=== PATIENT | male | born 1960 | race American Indian/Alaskan Native ===

== ENCOUNTER 2018-06-11 02:39 | Inpatient (IN) | payer MEDICARE ==
[2018-06-11] MEDS ORDERED: ZOFRAN IM ONE (03:52)
[2018-06-11 04:17] LABS: Hematocrit 45.3 % (35.5-45.6); Hemoglobin 15.1 gm/dl (11.8-15.2); Mean Corpuscular HGB Conc 33 % (32-34); Mean Corpuscular Volume 85 fl (84-94); Platelet Count 240 K/mm3 (140-440); Red Blood Count 5.34 M/mm3 (3.65-5.03); Red Cell Distribution Width 13.6 % (13.2-15.2)
[2018-06-11 04:40] LABS: BUN/Creatinine Ratio 19; Blood Urea Nitrogen 19 mg/dL (9-20); Calcium 9.2 mg/dL (8.4-10.2); Hemolysis Index 11
[2018-06-11] MEDS ORDERED: TYLENOL ONE (06:08)
[2018-06-11] MEDS ORDERED: TYLENOL PO ONE (06:10)
[2018-06-11 08:23] LABS: Basophils % (Manual) 0 % (0.0-1.8); Eosinophils % (Manual) 0 % (0.0-4.3); Total Cells Counted 100
[2018-06-11 08:24] LABS: Anisocytosis Few; Platelet Estimate Consistent w Auto
--- NOTE | 2018-06-11 08:59 | Emergency Department Report ---
ED Abdominal Pain HPI - General Chief Complaint: Hyperglycemia Stated Complaint: HIGH BLOOD SUGAR Time Seen by Provider: 06/11/18 08:46 Source: patient Mode of arrival: Ambulatory Limitations: No Limitations - History of Present Illness Initial Comments: Patient is a 58-year-old male presents emergency room with complaints of right flank pain and hyperglycemia. Patient states his blood sugar has been high for weeks. Patient states that his flank pain started 2 days ago and is worsening. Patient states the pain is a 10 out of 10. Patient states the pain is not radiating. Patient states that his pain is better with rest and worse with palpation and movement. Patient denies chest pain shortness of breath. Patient denies dysuria. Patient denies headache and blurred vision. Patient denies fever and chills. MD Complaint: abdominal pain, flank pain -: Sudden Location: R flank Radiation: none Migration to: no migration Severity scale (0 -10): 10 Quality: stabbing Consistency: constant Improves With: rest Worsens With: movement Associated Symptoms: denies: nausea, vomiting, diarrhea, fever, chills, constipation, dysuria, hematemesis, hematochezia, melena, hematuria, anorexia, syncope - Related Data Home Medications Medication Instructions Recorded Confirmed Last Taken ALBUTEROL Inhaler (OR & NICU) 1 puff IH BID 06/11/18 06/11/18 Unknown [Proair] Carvedilol [Coreg] 3.125 mg PO BID 06/11/18 06/11/18 Unknown Diclofenac [Estela Mahoney] 75 mg PO DAILY 06/11/18 06/11/18 Unknown Diphenhydramine HCl [Complete 25 mg PO DAILY 06/11/18 06/11/18 Unknown Allergy] Famotidine [Pepcid] 40 mg PO QHS 06/11/18 06/11/18 Unknown Gabapentin [Neurontin] 800 mg PO BID 06/11/18 06/11/18 Unknown Lansoprazole [Heartburn Treatment 15 mg PO DAILY 06/11/18 06/11/18 Unknown 24 Hour] Loratadine [Claritin] 10 mg PO DAILY 06/11/18 06/11/18 Unknown Olmesartan Medoxomil 20 mg PO DAILY 06/11/18 06/11/18 Unknown Tamsulosin [Flomax] 0.4 mg PO DAILY 06/11/18 06/11/18 Unknown Travoprost [Travatan Z] 1 drop OU QHS 06/11/18 06/11/18 Unknown cephALEXin [Keflex] 500 mg PO BID 06/11/18 06/11/18 Unknown hydrOXYzine HCl [Hydroxyzine HCl] 25 mg PO DAILY 06/11/18 06/11/18 Unknown tiZANidine [Zanaflex] 4 mg PO DAILY 06/11/18 06/11/18 Unknown traMADol [Ultram] 50 mg PO BID 06/11/18 06/11/18 Unknown traZODone [Desyrel] 100 mg PO QHS 06/11/18 06/11/18 Unknown Allergies Allergy/AdvReac Type Severity Reaction Status Date / Time No Known Allergies Allergy Verified 06/11/18 06:07 ED Review of Systems ROS: Stated complaint: HIGH BLOOD SUGAR Other details as noted in HPI Constitutional: denies: chills, fever Eyes: denies: eye pain, eye discharge, vision change ENT: denies: ear pain, throat pain Respiratory: denies: cough, shortness of breath, wheezing Cardiovascular: denies: chest pain, palpitations Endocrine: no symptoms reported Gastrointestinal: denies: abdominal pain, nausea, diarrhea Genitourinary: denies: urgency, dysuria Musculoskeletal: denies: back pain, joint swelling, arthralgia Skin: denies: rash, lesions Neurological: denies: headache, weakness, paresthesias Psychiatric: denies: anxiety, depression Hematological/Lymphatic: denies: easy bleeding, easy bruising ED Past Medical Hx - Past Medical History Previous Medical History?: Yes Hx Diabetes: Yes Hx GERD: Yes Additional medical history: Hep B&C. - Surgical History Past Surgical History?: Yes Hx Cholecystectomy: Yes Additional Surgical History: Hernia Repair, Cyst left thigh - Family History Family history: no significant - Social History Smoking Status: Current Every Day Smoker Substance Use Type: None - Medications Home Medications: Home Medications Medication Instructions Recorded Confirmed Last Taken Type ALBUTEROL Inhaler (OR & NICU) 1 puff IH BID 06/11/18 06/11/18 Unknown History [Proair] Carvedilol [Coreg] 3.125 mg PO BID 06/11/18 06/11/[address] [Voltaren Dr] 75 mg PO DAILY 06/11/18 06/11/18 Unknown History Diphenhydramine HCl [Complete 25 mg PO DAILY 06/11/18 06/11/18 Unknown History Allergy] Famotidine [Pepcid] 40 mg PO QHS 06/11/18 06/11/18 Unknown History Gabapentin [Neurontin] 800 mg PO BID 06/11/18 06/11/18 Unknown History Lansoprazole [Heartburn Treatment 15 mg PO DAILY 06/11/18 06/11/18 Unknown History 24 Hour] Loratadine [Claritin] 10 mg PO DAILY 06/11/18 06/11/18 Unknown History Olmesartan Medoxomil 20 mg PO DAILY 06/11/18 06/11/18 Unknown History Tamsulosin [Flomax] 0.4 mg PO DAILY 06/11/18 06/11/18 Unknown History Travoprost [Travatan Z] 1 drop OU QHS 06/11/18 06/11/18 Unknown History cephALEXin [Keflex] 500 mg PO BID 06/11/18 06/11/18 Unknown History hydrOXYzine HCl [Hydroxyzine HCl] 25 mg PO DAILY 06/11/18 06/11/18 Unknown History tiZANidine [Zanaflex] 4 mg PO DAILY 06/11/18 06/11/18 Unknown History traMADol [Ultram] 50 mg PO BID 06/11/18 06/11/18 Unknown History traZODone [Desyrel] 100 mg PO QHS 06/11/18 06/11/18 Unknown History ED Physical Exam - General Limitations: No Limitations General appearance: alert, in no apparent distress - Head Head exam: Present: atraumatic, normocephalic - Eye Eye exam: Present: normal appearance - ENT ENT exam: Present: mucous membranes dry - Neck Neck exam: Present: normal inspection - Respiratory Respiratory exam: Present: normal lung sounds bilaterally. Absent: respiratory distress - Cardiovascular Cardiovascular Exam: Present: regular rate, normal rhythm. Absent: systolic murmur, diastolic murmur, rubs, gallop - GI/Abdominal GI/Abdominal exam: Present: soft, tenderness (right flank tenderness), normal anaid wel sounds - Rectal Rectal exam: Present: deferred - Extremities Exam Extremities exam: Present: normal inspection - Back Exam Back exam: Present: normal inspection - Neurological Exam Neurological exam: Present: alert, oriented X3 - Psychiatric Psychiatric exam: Present: normal affect, normal mood - Skin Skin exam: Present: warm, dry, intact, normal color. Absent: rash ED Course Vital Signs 06/11/18 06/11/18 03:42 14:25 Temperature 98.1 F Pulse Rate 131 H Respiratory 18 20 Rate Blood Pressure 120/84 O2 Sat by Pulse 98 Oximetry - Reevaluation(s) Reevaluation #1: Discussed all results with patient. 06/11/18 11:37 Nurse was unable to achieve peripheral IV. I was unable to acquire EJ IVs as well. 06/11/18 11:56 PICC line team consulted. PICC line team to come see patient started IV 06/11/18 11:59 Virgen all results with patient. Discussed plan of care and admission patient. Patient agrees with plan of care and admission. 06/11/18 12:45 - Consultations Consultation #1: Hospitalist consulted for admission. Hospitalist to admit and assume care of patient. Patient admitted to the intermediate ICU and bridge orders placed 06/11/18 12:07 ED Medical Decision Making - Lab Data Result diagrams: 06/11/18 03:54 06/11/18 14:03 - Radiology Data Radiology results: report reviewed CT ABDOMEN PELVIS WITHOUT CONTRAST: HISTORY: abdominal pain. COMPARISON: none. TECHNIQUE: Helical CT in 1.25mm intervals without IV contrast. Sagittal and coronal reconstructions. FINDINGS: Lung bases: The lungs are adequately aerated. Normal heart size. Small hiatal hernia is identified. Liver: Normal. Biliary system: Cholecystectomy. Pancreas: Normal. Spleen: Normal. Kidneys/ureters/bladder: Normal. Few scattered small renal cysts are noted. Adrenal glands: Normal. Aorta: Normal. Intestines: Normal. Appendix: Normal. Ascites: None. Adenopathy: None. Musculoskeletal: Normal. IMPRESSION: No acute process is identified in the abdomen or pelvis - Medical Decision Making She has 58-year-old male that presents emergency room with abdominal pain and hyperglycemia. Abdominal CT is negative for acute findings. Patient's labs remarkable for elevated white blood cell, low bicarbonate, (9 gap, and hyponatremia. Patient's findings consistent with hyperosmolar hyperglycemia syndrome. Patient was admitted to the hospitalist service for further evaluation treatment. We had difficulty placing a peripheral IV, PICC line team consulted. - Differential Diagnosis DKA. Hyperglycemia. HHS. Abdominal pain. UTI. Critical Care Time: Yes Critical care attestation.: If time is entered above; I have spent that time in minutes in the direct care of this critically ill patient, excluding procedure time. Critical Care Time: 35 minutes ED Disposition Clinical Impression: Hyperglycemia, Hyperglycemic hyperosmolar nonketotic coma, Hyponatremia, Right flank pain Abdominal pain Qualifiers: Abdominal location: unspecified location Qualified Code(s): R10.9 - Unspecified abdominal pain Disposition: 09 OP ADMIT IP TO THIS HOSP Is pt being admited?: Yes Does the pt Need Aspirin: No Condition: Critical Time of Disposition: 12:02
--- NOTE | 2018-06-11 10:53 | Cat Scan Report ---
CT ABDOMEN PELVIS WITHOUT CONTRAST: HISTORY: abdominal pain. COMPARISON: none. TECHNIQUE: Helical CT in 1.25mm intervals without IV contrast. Sagittal and coronal reconstructions. FINDINGS: Lung bases: The lungs are adequately aerated. Normal heart size. Small hiatal hernia is identified. Liver: Normal. Biliary system: Cholecystectomy. Pancreas: Normal. Spleen: Normal. Kidneys/ureters/bladder: Normal. Few scattered small renal cysts are noted. Adrenal glands: Normal. Aorta: Normal. Intestines: Normal. Appendix: Normal. Ascites: None. Adenopathy: None. Musculoskeletal: Normal. IMPRESSION: No acute process is identified in the abdomen or pelvis.
[2018-06-11] MEDS ORDERED: ROCEPHIN/NS 1 GM/50 ML 1 GM/50 ML BAG IV ONE ×2 (11:32→13:35)
[2018-06-11] MEDS ORDERED: D50W (25GM) Syringe IV PRN (12:04)
[2018-06-11] MEDS ORDERED: NACL 0.9% 1000 ML 1,000 ML IV ONE (12:04)
[2018-06-11 12:19] LABS: Bilirubin,Urine NEG (Negative); Blood,Urine NEG (Negative); Color,Urine Yellow (Yellow); Mucus,Urine FEW /HPF; Protein,Urine <15 mg/dL mg/dL (Negative)
[2018-06-11] MEDS ORDERED: HumuLIN R 100 UNITS in NACL 0.9% 99 ML IV SCH (13:00)
[2018-06-11] MEDS ORDERED: NACL 0.9% 1000 ML 1,000 ML ONE ×2 (13:36→19:29)
[2018-06-11] MEDS ORDERED: TYLENOL PO PRN (13:41)
[2018-06-11] MEDS ORDERED: REGLAN IV PRN (13:41)
[2018-06-11] MEDS ORDERED: SODIUM CHLORIDE FLUSH SYRINGE 10 ML IV PRN (13:41)
[2018-06-11] MEDS ORDERED: DILAUDID IV PRN (13:41)
[2018-06-11] MEDS ORDERED: PERCOCET 5/325 PO PRN (13:41)
[2018-06-11] MEDS ORDERED: ZOFRAN IV PRN (13:41)
[2018-06-11] MEDS ORDERED: NON-FORMULARY (Gabapentin [Neurontin] 800 MG) PO SCH (13:45)
[2018-06-11] MEDS ORDERED: DILAUDID IV ONE (13:45)
[2018-06-11] MEDS ORDERED: PROAIR IH SCH (13:45)
[2018-06-11] MEDS ORDERED: OLMESARTAN MEDOXOMIL 20 MG PO SCH (14:00)
[2018-06-11] MEDS ORDERED: ROCEPHIN/NS 2 GM/100 ML 2 GM/100 ML BAG IV SCH (14:00)
[2018-06-11] MEDS ORDERED: PROVENTIL IH PRN (14:30)
[2018-06-11 14:35] LABS: Calcium 8.6 mg/dL (8.4-10.2)
[2018-06-11 14:36] LABS: Calcium 8.6 mg/dL (8.4-10.2)
[2018-06-11] MEDS ORDERED: HumaLOG SUB-Q ONE (14:49)
[2018-06-11] MEDS ORDERED: NEURONTIN ONE ×2 (14:51→22:54)
[2018-06-11] MEDS ORDERED: COREG ONE ×2 (14:51→22:54)
[2018-06-11] MEDS ORDERED: BENADRYL PO ONE (14:51)
[2018-06-11] MEDS ORDERED: ZANAFLEX ONE (14:52)
[2018-06-11] MEDS ORDERED: PEPCID IV ONE ×2 (14:52→22:54)
[2018-06-11] MEDS ORDERED: ULTRAM ONE ×2 (14:53→22:55)
[2018-06-11] MEDS: BENADRYL PO SCH (15:03)
[2018-06-11] MEDS: COREG PO SCH ×2 (15:03→22:58)
[2018-06-11] MEDS: HumaLOG SUB-Q SCH ×3 (15:04→22:58)
[2018-06-11] MEDS: PEPCID IV SCH ×2 (15:26→22:59)
[2018-06-11] MEDS: ULTRAM PO SCH ×2 (15:34→22:59)
[2018-06-11] MEDS: NEURONTIN PO SCH ×2 (15:35→22:59)
[2018-06-11] MEDS: ZANAFLEX PO SCH (15:35)
[2018-06-11] MEDS: FLOMAX PO SCH (15:57)
[2018-06-11 16:24] LABS: Calcium 8.5 mg/dL (8.4-10.2)
[2018-06-11] MEDS: LANTUS SUB-Q SCH ×2 (16:38→23:55)
[2018-06-11] MEDS: NACL 0.9% 1000 ML 1,000 ML IV SCH (19:41)
[2018-06-11] MEDS ORDERED: HumuLIN R ONE (20:32)
[2018-06-11 21:59] LABS: BUN/Creatinine Ratio 17; Blood Urea Nitrogen 24 mg/dL (9-20); Calcium 7.9 mg/dL (8.4-10.2); Hemolysis Index 6
[2018-06-11] MEDS ORDERED: NON-FORMULARY (Travoprost [Travatan Z 0.004%] 1 DROP) OU SCH (22:00)
[2018-06-11] MEDS ORDERED: DESYREL PO ONE (22:54)
[2018-06-11] MEDS: DESYREL PO SCH (22:58)
[2018-06-11] MEDS: SODIUM CHLORIDE FLUSH SYRINGE 10 ML IV SCH (22:59)
[2018-06-11] MEDS: LATANOPROST 0.005% OU SCH (23:00)
[2018-06-11] MEDS: ATARAX PO SCH (23:55)
[2018-06-12] MEDS: HumaLOG SUB-Q SCH ×6 (01:56→21:46)
[2018-06-12] MEDS ORDERED: HumaLOG SUB-Q ONE (02:02)
[2018-06-12 06:38] LABS: BUN/Creatinine Ratio 23; Blood Urea Nitrogen 23 mg/dL (9-20); Hemolysis Index 67
--- NOTE | 2018-06-12 07:07 | History and Physical Report ---
History of Present Illness Date of examination: 06/11/18 Date of admission: 06/11/18 12:02 Chief complaint: Rt Flank pain --2 days History of present illness: Patient is a 58-year-old male presents emergency room with complaints of right flank pain and hyperglycemia. Patient states his blood sugar has been high for weeks. Patient states that his flank pain started 2 days ago and is worsening. Patient states the pain is a 10 out of 10. Patient states the pain is not radiating. Patient states that his pain is better with rest and worse with palpation and movement. Patient denies chest pain shortness of breath. Patient denies dysuria. Patient denies headache and blurred vision. Patient denies fever and chills. Past Medical History Previous Medical History?: Yes Hx Diabetes: Yes Hx GERD: Yes Additional medical history: Hep B&C. Surgical History Past Surgical History?: Yes Hx Cholecystectomy: Yes Additional Surgical History: Hernia Repair, Cyst left thigh Family History Family history: no significant Social History Smoking Status: Current Every Day Smoker Substance Use Type: None Medications Home Medications: Home Medications Medication Instructions Recorded Confirmed Last Taken Type ALBUTEROL Inhaler (OR & NICU) 1 puff IH BID 06/11/18 06/11/18 Unknown History [Proair] Carvedilol [Coreg] 3.125 mg PO BID 06/11/18 06/11/18 Unknown History Diclofenac [Estela Mahoney] 75 mg PO DAILY 06/11/18 06/11/18 Unknown History Diphenhydramine HCl [Complete 25 mg PO DAILY 06/11/18 06/11/18 Unknown History Allergy] Famotidine [Pepcid] 40 mg PO QHS 06/11/18 06/11/18 Unknown History Gabapentin [Neurontin] 800 mg PO BID 06/11/18 06/11/18 Unknown History Lansoprazole [Heartburn Treatment 15 mg PO DAILY 06/11/18 06/11/18 Unknown History 24 Hour] Loratadine [Claritin] 10 mg PO DAILY 06/11/18 06/11/18 Unknown History Olmesartan Medoxomil 20 mg PO DAILY 06/11/18 06/11/18 Unknown History Tamsulosin [Flomax] 0.4 mg PO DAILY 06/11/18 06/11/18 Unknown History Travoprost [Travatan Z] 1 drop OU QHS 06/11/18 06/11/18 Unknown History cephALEXin [Keflex] 500 mg PO BID 06/11/18 06/11/18 Unknown History hydrOXYzine HCl [Hydroxyzine HCl] 25 mg PO DAILY 06/11/18 06/11/18 Unknown History tiZANidine [Zanaflex] 4 mg PO DAILY 06/11/18 06/11/18 Unknown History traMADol [Ultram] 50 mg PO BID 06/11/18 06/11/18 Unknown History traZODone [Desyrel] 100 mg PO QHS 06/11/18 06/11/18 Unknown History Review of Systems ROS: Stated complaint: HIGH BLOOD SUGAR Other details as noted in HPI Constitutional: denies: chills, fever Eyes: denies: eye pain, eye discharge, vision change ENT: denies: ear pain, throat pain Respiratory: denies: cough, shortness of breath, wheezing Cardiovascular: denies: chest pain, palpitations Endocrine: no symptoms reported Gastrointestinal: denies: abdominal pain, nausea, diarrhea Genitourinary: denies: urgency, dysuria Musculoskeletal: denies: back pain, joint swelling, arthralgia Skin: denies: rash, lesions Neurological: denies: headache, weakness, paresthesias Psychiatric: denies: anxiety, depression Hematological/Lymphatic: denies: easy bleeding, easy bruising Medications and Allergies Allergies Allergy/AdvReac Type Severity Reaction Status Date / Time No Known Allergies Allergy Verified 06/11/18 06:07 Home Medications Medication Instructions Recorded Confirmed Last Taken Type ALBUTEROL Inhaler (OR & NICU) 1 puff IH BID 06/11/18 06/11/18 Unknown History [Proair] Carvedilol [Coreg] 3.125 mg PO BID 06/11/18 06/11/18 Unknown History Lauren Mahoney [Estela Mahoney] 75 mg PO DAILY 06/11/18 06/11/18 Unknown History Diphenhydramine HCl [Complete 25 mg PO DAILY 06/11/18 06/11/18 Unknown History Allergy] Famotidine [Pepcid] 40 mg PO QHS 06/11/18 06/11/18 Unknown History Gabapentin [Neurontin] 800 mg PO BID 06/11/18 06/11/18 Unknown History Lansoprazole [Heartburn Treatment 15 mg PO DAILY 06/11/18 06/11/18 Unknown History 24 Hour] Loratadine [Claritin] 10 mg PO DAILY 06/11/18 06/11/18 Unknown History Olmesartan Medoxomil 20 mg PO DAILY 06/11/18 06/11/18 Unknown History Tamsulosin [Flomax] 0.4 mg PO DAILY 06/11/18 06/11/18 Unknown History Travoprost [Travatan Z] 1 drop OU QHS 06/11/18 06/11/18 Unknown History cephALEXin [Keflex] 500 mg PO BID 06/11/18 06/11/18 Unknown History hydrOXYzine HCl [Hydroxyzine HCl] 25 mg PO DAILY 06/11/18 06/11/18 Unknown History tiZANidine [Zanaflex] 4 mg PO DAILY 06/11/18 06/11/18 Unknown History traMADol [Ultram] 50 mg PO BID 06/11/18 06/11/18 Unknown History traZODone [Desyrel] 100 mg PO QHS 06/11/18 06/11/18 Unknown History Active Meds: Active Medications Acetaminophen (Tylenol) 650 mg PO Q4H PRN PRN Reason: Pain MILD(1-3)/Fever >100.5/JOHNSON Albuterol (Proventil) 2.5 mg IH Q4HRT PRN PRN Reason: Shortness Of Breath Carvedilol (Coreg) 3.125 mg PO BID [facility] Last Admin: 06/11/18 22:58 Dose: 3.125 mg Documented by: Dextrose (D50w (25gm) Syringe) 0 ml IV PRN PRN PRN Reason: Hypoglycemia Diphenhydramine HCl (Benadryl) 25 mg PO DAILY [facility] Last Admin: 06/11/18 15:03 Dose: 25 mg Documented by: Famotidine (Pepcid) 20 mg IV BID [facility] Last Admin: 06/11/18 22:59 Dose: 20 mg Documented by: Gabapentin (Neurontin) 800 mg PO BID [facility] Last Admin: 06/11/18 22:59 Dose: 800 mg Documented by: Hydromorphone HCl (Dilaudid) 0.5 mg IV Q3H PRN PRN Reason: Pain , Severe (7-10) Hydroxyzine HCl (Atarax) 25 mg PO QHS [facility] Last Admin: 06/11/18 23:55 Dose: 25 mg Documented by: Ceftriaxone Sodium (Rocephin/Ns 2 Gm/100 Ml) 2 gm in 100 mls @ 200 mls/hr IV Q24HR [facility]; Protocol Last Admin: 06/11/18 20:23 Dose: 200 mls/hr Documented by: Sodium Chloride (Nacl 0.9% 1000 Ml) 1,000 mls @ 100 mls/hr IV DIRECT [facility] Last Admin: 06/11/18 19:41 Dose: 100 mls/hr Documented by: Insulin Glargine (Lantus) 30 units SUB-Q BID [facility] Last Admin: 06/11/18 23:55 Dose: 30 units Documented by: Insulin Human Lispro (Humalog) 0 unit SUB-Q Q4HR [facility]; Protocol Last Admin: 06/12/18 06:18 Dose: Not Given Documented by: Latanoprost (Latanoprost 0.005%) 1 drops OU QPM [facility] Last Admin: 06/11/18 23:00 Dose: 1 drops Documented by: Losartan Potassium (Cozaar) 50 mg PO QDAY [facility] Metoclopramide HCl (Reglan) 10 mg IV Q6H PRN PRN Reason: Nausea And Vomiting Ondansetron HCl (Zofran) 4 mg IV Q3H PRN PRN Reason: Nausea And Vomiting Oxycodone/Acetaminophen (Percocet 5/325) 1 tab PO Q6H PRN PRN Reason: Pain, Moderate (4-6) Sodium Chloride (Sodium Chloride Flush Syringe 10 Ml) 10 ml IV BID [facility] Last Admin: 06/11/18 22:59 Dose: 10 ml Documented by: Sodium Chloride (Sodium Chloride Flush Syringe 10 Ml) 10 ml IV PRN PRN PRN Reason: LINE FLUSH Tamsulosin HCl (Flomax) 0.4 mg PO DAILY [facility] Last Admin: 06/11/18 15:57 Dose: 0.4 mg Documented by: Tizanidine HCl (Zanaflex) 4 mg PO DAILY [facility] Last Admin: 06/11/18 15:35 Dose: 4 mg Documented by: Tramadol HCl (Ultram) 50 mg PO BID [facility] Last Admin: 06/11/18 22:59 Dose: 50 mg Documented by: Trazodone HCl (Desyrel) 100 mg PO QHS [facility] Last Admin: 06/11/18 22:58 Dose: 100 mg Documented by: Exam - Constitutional Vitals: Temp Pulse Resp BP Pulse Ox 98.7 F 68 11 L 95/59 100 06/11/18 16:22 06/12/18 04:00 06/12/18 04:00 06/12/18 04:00 06/11/18 14:52 General appearance: Present: no acute distress, well-nourished - EENT Eyes: Present: PERRL ENT: hearing intact, clear oral mucosa - Neck Neck: Present: supple, normal ROM - Respiratory Respiratory effort: normal Respiratory: bilateral: CTA - Cardiovascular Heart rate: 88 Rhythm: regular Heart Sounds: Present: S1 & S2. Absent: rub, click - Extremities Extremities: no ischemia, pulses intact, pulses symmetrical, No edema Peripheral Pulses: within normal limits - Abdominal General gastrointestinal: Present: soft, non-tender, non-distended, normal bowel sounds Male genitourinary: Present: normal - Rectal Rectal Exam: deferred - Integumentary Integumentary: Present: clear, warm, dry - Musculoskeletal Musculoskeletal: gait normal, strength equal bilaterally - Psychiatric Psychiatric: appropriate mood/affect, intact judgment & insight - Neurologic Neurologic: CNII-XII intact, moves all extremities - Allied Health Allied health notes reviewed: nursing, case management Results - Labs CBC & Chem 7: 06/11/18 03:54 06/12/18 05:18 Labs: Laboratory Last Values WBC 20.4 K/mm3 (4.5-11.0) H 06/11/18 03:54 RBC 5.34 M/mm3 (3.65-5.03) H 06/11/18 03:54 Hgb 15.1 gm/dl (11.8-15.2) 06/11/18 03:54 Hct 45.3 % (35.5-45.6) 06/11/18 03:54 MCV 85 fl (84-94) 06/11/18 03:54 MCH 28 pg (28-32) 06/11/18 03:54 MCHC 33 % (32-34) 06/11/18 03:54 RDW 13.6 % (13.2-15.2) 06/11/18 03:54 Plt Count 240 K/mm3 (140-440) 06/11/18 03:54 Add Manual Diff Complete 06/11/18 03:54 Total Counted 100 06/11/18 03:54 Seg Neuts % (Manual) 73.0 % (40.0-70.0) H 06/11/18 03:54 Band Neutrophils % 0 % 06/11/18 03:54 Lymphocytes % (Manual) 20.0 % (13.4-35.0) 06/11/18 03:54 Reactive Lymphs % (Man) 0 % 06/11/18 03:54 Monocytes % (Manual) 7.0 % (0.0-7.3) 06/11/18 03:54 Eosinophils % (Manual) 0 % (0.0-4.3) 06/11/18 03:54 Basophils % (Manual) 0 % (0.0-1.8) 06/11/18 03:54 Metamyelocytes % 0 % 06/11/18 03:54 Myelocytes % 0 % 06/11/18 03:54 Promyelocytes % 0 % 06/11/18 03:54 Blast Cells % 0 % 06/11/18 03:54 Nucleated RBC % Not Reportable 06/11/18 03:54 Seg Neutrophils # Man 14.9 K/mm3 (1.8-7.7) H 06/11/18 03:54 Band Neutrophils # 0.0 K/mm3 06/11/18 03:54 Lymphocytes # (Manual) 4.1 K/mm3 (1.2-5.4) 06/11/18 03:54 Abs React Lymphs (Man) 0.0 K/mm3 06/11/18 03:54 Monocytes # (Manual) 1.4 K/mm3 (0.0-0.8) H 06/11/18 03:54 Eosinophils # (Manual) 0.0 K/mm3 (0.0-0.4) 06/11/18 03:54 Basophils # (Manual) 0.0 K/mm3 (0.0-0.1) 06/11/18 03:54 Metamyelocytes # 0.0 K/mm3 06/11/18 03:54 Myelocytes # 0.0 K/mm3 06/11/18 03:54 Promyelocytes # 0.0 K/mm3 06/11/18 03:54 Blast Cells # 0.0 K/mm3 06/11/18 03:54 WBC Morphology Not Reportable 06/11/18 03:54 Hypersegmented Neuts Not Reportable 06/11/18 03:54 Hyposegmented Neuts Not Reportable 06/11/18 03:54 Hypogranular Neuts Not Reportable 06/11/18 03:54 Smudge Cells Not Reportable 06/11/18 03:54 Toxic Granulation Not Reportable 06/11/18 03:54 Toxic Vacuolation Not Reportable 06/11/18 03:54 Dohle Bodies Not Reportable 06/11/18 03:54 Pelger-Huet Anomaly Not Reportable 06/11/18 03:54 Ashley Rods Not Reportable 06/11/18 03:54 Platelet Estimate Consistent w auto 06/11/18 03:54 Clumped Platelets Not Reportable 06/11/18 03:54 Plt Clumps, EDTA Not Reportable 06/11/18 03:54 Large Platelets Not Reportable 06/11/18 03:54 Giant Platelets Not Reportable 06/11/18 03:54 Platelet Satelliting Not Reportable 06/11/18 03:54 Plt Morphology Comment Not Reportable 06/11/18 03:54 RBC Morphology Not Reportable 06/11/18 03:54 Dimorphic RBCs Not Reportable 06/11/18 03:54 Polychromasia Not Reportable 06/11/18 03:54 Hypochromasia Not Reportable 06/11/18 03:54 Poikilocytosis Not Reportable 06/11/18 03:54 Anisocytosis Few 06/11/18 03:54 Microcytosis Not Reportable 06/11/18 03:54 Macrocytosis Not Reportable 06/11/18 03:54 Spherocytes Not Reportable 06/11/18 03:54 Pappenheimer Bodies Not Reportable 06/11/18 03:54 Sickle Cells Not Reportable 06/11/18 03:54 Target Cells Not Reportable 06/11/18 03:54 Tear Drop Cells Not Reportable 06/11/18 03:54 Ovalocytes Not Reportable 06/11/18 03:54 Helmet Cells Not Reportable 06/11/18 03:54 [place] Bodies Not Reportable 06/11/18 03:54 [place] Rings Not Reportable 06/11/18 03:54 [place] Cells Not Reportable 06/11/18 03:54 Bite Cells Not Reportable 06/11/18 03:54 Crenated Cell Not Reportable 06/11/18 03:54 Elliptocytes Not Reportable 06/11/18 03:54 Acanthocytes (Spur) Not Reportable 06/11/18 03:54 Rouleaux Not Reportable 06/11/18 03:54 Hemoglobin C Crystals Not Reportable 06/11/18 03:54 Schistocytes Not Reportable 06/11/18 03:54 Malaria parasites Not Reportable 06/11/18 03:54 Toby Bodies Not Reportable 06/11/18 03:54 Hem Pathologist Commnt No 06/11/18 03:54 VBG pH 7.425 (7.320-7.420) H 06/11/18 03:54 Sodium 137 mmol/L (137-145) 06/12/18 05:18 Potassium 4.5 mmol/L (3.6-5.0) 06/12/18 05:18 Chloride 105.7 mmol/L (98-107) 06/12/18 05:18 Carbon Dioxide 17 mmol/L (22-30) L 06/12/18 05:18 Anion Gap 19 mmol/L 06/12/18 05:18 BUN 23 mg/dL (9-20) H 06/12/18 05:18 Creatinine 1.0 mg/dL (0.8-1.5) 06/12/18 05:18 Estimated GFR > 60 ml/min 06/12/18 05:18 BUN/Creatinine Ratio 23 % 06/12/18 05:18 Glucose 76 mg/dL (75-100) 06/12/18 05:18 POC Glucose 199 (70-105) H 06/12/18 01:48 Lactic Acid 1.80 mmol/L (0.7-2.0) 06/11/18 14:03 Calcium 8.0 mg/dL (8.4-10.2) L 06/12/18 05:18 Phosphorus 4.60 mg/dL (2.5-4.5) H 06/11/18 14:03 Magnesium 2.20 mg/dL (1.7-2.3) 06/11/18 14:03 Urine Color Yellow (Yellow) 06/11/18 Unknown Urine Turbidity Clear (Clear) 06/11/18 Unknown Urine pH 5.0 (5.0-7.0) 06/11/18 Unknown Ur Specific [place] 1.032 (1.003-1.030) H 06/11/18 Unknown Urine Protein <15 mg/dl mg/dL (Negative) 06/11/18 Unknown Urine Glucose (UA) >=500 mg/dL (Negative) 06/11/18 Unknown Urine Ketones Neg mg/dL (Negative) 06/11/18 Unknown Urine Blood Neg (Negative) 06/11/18 Unknown Urine Nitrite Neg (Negative) 06/11/18 Unknown Urine Bilirubin Neg (Negative) 06/11/18 Unknown Urine Urobilinogen 2.0 mg/dL (<2.0) 06/11/18 Unknown Ur Leukocyte Esterase Neg (Negative) 06/11/18 Unknown Urine WBC (Auto) 1.0 /HPF (0.0-6.0) 06/11/18 Unknown Urine RBC (Auto) 3.0 /HPF (0.0-6.0) 06/11/18 Unknown U Epithel Cells (Auto) 1.0 /HPF (0-13.0) 06/11/18 Unknown Urine Mucus Few /HPF 06/11/18 Unknown Short CBC 06/11/18 Range/Units 03:54 WBC 20.4 H (4.5-11.0) K/mm3 Hgb 15.1 (11.8-15.2) gm/dl Hct 45.3 (35.5-45.6) % Plt Count 240 (140-440) K/mm3 BMP 06/11/18 06/11/18 06/11/18 14:03 14:03 15:47 Sodium 137 135 L 138 Potassium 3.6 3.6 3.7 Chloride 99.6 98.5 100.7 Carbon Dioxide 21 L 21 L 24 BUN 25 H 25 H 24 H Creatinine 1.5 1.6 H 1.5 Glucose 232 H 230 H 111 H Calcium 8.6 8.6 8.5 06/11/18 06/12/18 21:21 05:18 Sodium 134 L 137 Potassium 4.0 4.5 Chloride 99.8 105.7 Carbon Dioxide 21 L 17 L BUN 24 H 23 H Creatinine 1.4 1.0 Glucose 355 H 76 Calcium 7.9 L 8.0 L Urine 06/11/18 Range/Units Unknown Urine Color Yellow (Yellow) Urine pH 5.0 (5.0-7.0) Ur Specific [place] 1.032 H (1.003-1.030) Urine Protein <15 mg/dl (Negative) mg/dL Urine Glucose (UA) >=500 (Negative) mg/dL - Imaging and Cardiology Imaging and Cardiology: Abd CT IMPRESSION: No acute process is identified in the abdomen or pelvis. Assessment and Plan Advance Directives: Yes (FC) VTE prophylaxis?: Chemical Plan of care discussed with patient/family: Yes - Patient Problems (1) Hyperosmolar non-ketotic state in patient with type 2 diabetes mellitus Current Visit: Yes Status: Acute Plan to address problem: IV insulin drip initially Then changed to frequent accucheks and High dose s/s protocol IV Fluids for now (2) Right flank pain Current Visit: Yes Status: Acute Plan to address problem: No Pyelonephritis IV ceftriaxone for now Maybe deescalated (3) HTN (hypertension) Current Visit: Yes Status: Chronic Qualifiers: Hypertension type: essential hypertension Qualified Code(s): I10 - Essential (primary) hypertension Plan to address problem: Cont antihypertensives (4) BPH (benign prostatic hyperplasia) Current Visit: Yes Status: Chronic Qualifiers: Lower urinary tract symptom presence: symptoms present Plan to address problem: Cont Flomax (5) Peripheral neuropathy Current Visit: Yes Status: Chronic Qualifiers: Peripheral neuropathy type: polyneuropathy, unspecified Qualified Code(s): G62.9 - Polyneuropathy, unspecified Plan to address problem: Cont Gabapentin (6) GERD (gastroesophageal reflux disease) Current Visit: Yes Status: Chronic Qualifiers: Esophagitis presence: with esophagitis Qualified Code(s): K21.0 - Gastro- esophageal reflux disease with esophagitis Plan to address problem: Cont PPI's (7) DVT prophylaxis Current Visit: Yes Status: Acute Plan to address problem: On lOvenox and GI prophylaxis
[2018-06-12] MEDS ORDERED: NACL 0.9% 1000 ML 1,000 ML ONE (08:55)
[2018-06-12] MEDS: LANTUS SUB-Q SCH ×2 (09:56→21:45)
[2018-06-12] MEDS: SODIUM CHLORIDE FLUSH SYRINGE 10 ML IV SCH ×2 (10:01→21:47)
[2018-06-12] MEDS ORDERED: COREG ONE (10:08)
[2018-06-12] MEDS ORDERED: NEURONTIN ONE (10:09)
[2018-06-12] MEDS ORDERED: PEPCID IV ONE (10:09)
[2018-06-12] MEDS ORDERED: BENADRYL PO ONE ×2 (10:09→10:11)
[2018-06-12] MEDS: BENADRYL PO SCH (10:14)
[2018-06-12] MEDS: PEPCID IV SCH ×2 (10:15→21:47)
[2018-06-12] MEDS: COREG PO SCH ×2 (10:15→21:07)
[2018-06-12] MEDS: NEURONTIN PO SCH ×2 (10:16→21:00)
[2018-06-12] MEDS: COZAAR PO SCH (10:17)
--- NOTE | 2018-06-12 10:20 | Progress Note ---
Assessment and Plan Assessment and plan: --Hyperglycemia/hyperosmolar nonketotic state s/p insulin drip Accu-Chek sliding scale coverage and ADA diet Long-acting insulin, A1c Diabetic education and nutrition consult --Hypertension; moderate control Continue current antihypertensives and when necessary medications --Diabetic neuropathy; on gabapentin --Gastroesophageal reflux disease; continue Protonix --History of BPH; stable on Flomax --DVT prophylaxis; Lovenox possible discharge in 1-2 days if stable Plan of care reviewed with the patient and his nurse Patient may be downgraded from IMCU to medical floor History Interval history: Patient seen and examined medical records reviewed Patient feels better no new complaints Blood sugars reasonable levels Alert awake oriented 3 Vital signs noted Hospitalist Physical - Constitutional Vitals: Temp Pulse Resp BP Pulse Ox 98.7 F 64 16 91/56 96 06/11/18 16:22 06/12/18 09:00 06/12/18 09:00 06/12/18 10:17 06/12/18 09:00 General appearance: Present: no acute distress, well-nourished - EENT Eyes: Present: PERRL, EOM intact - Neck Neck: Present: supple, normal ROM - Respiratory Respiratory effort: normal Respiratory: bilateral: diminished, negative: rales, rhonchi, wheezing - Cardiovascular Rhythm: regular Heart Sounds: Present: S1 & S2 - Extremities Extremities: no ischemia, No edema - Abdominal General gastrointestinal: soft, non-tender, non-distended, normal bowel sounds - Integumentary Integumentary: Present: clear, warm - Psychiatric Psychiatric: appropriate mood/affect, cooperative - Neurologic Neurologic: moves all extremities Results - Labs CBC & Chem 7: 06/11/18 03:54 06/12/18 13:31 Labs: Laboratory Last Values WBC 20.4 K/mm3 (4.5-11.0) H 06/11/18 03:54 RBC 5.34 M/mm3 (3.65-5.03) H 06/11/18 03:54 Hgb 15.1 gm/dl (11.8-15.2) 06/11/18 03:54 Hct 45.3 % (35.5-45.6) 06/11/18 03:54 MCV 85 fl (84-94) 06/11/18 03:54 MCH 28 pg (28-32) 06/11/18 03:54 MCHC 33 % (32-34) 06/11/18 03:54 RDW 13.6 % (13.2-15.2) 06/11/18 03:54 Plt Count 240 K/mm3 (140-440) 06/11/18 03:54 Add Manual Diff Complete 06/11/18 03:54 Total Counted 100 06/11/18 03:54 Seg Neuts % (Manual) 73.0 % (40.0-70.0) H 06/11/18 03:54 Band Neutrophils % 0 % 06/11/18 03:54 Lymphocytes % (Manual) 20.0 % (13.4-35.0) 06/11/18 03:54 Reactive Lymphs % (Man) 0 % 06/11/18 03:54 Monocytes % (Manual) 7.0 % (0.0-7.3) 06/11/18 03:54 Eosinophils % (Manual) 0 % (0.0-4.3) 06/11/18 03:54 Basophils % (Manual) 0 % (0.0-1.8) 06/11/18 03:54 Metamyelocytes % 0 % 06/11/18 03:54 Myelocytes % 0 % 06/11/18 03:54 Promyelocytes % 0 % 06/11/18 03:54 Blast Cells % 0 % 06/11/18 03:54 Nucleated RBC % Not Reportable 06/11/18 03:54 Seg Neutrophils # Man 14.9 K/mm3 (1.8-7.7) H 06/11/18 03:54 Band Neutrophils # 0.0 K/mm3 06/11/18 03:54 Lymphocytes # (Manual) 4.1 K/mm3 (1.2-5.4) 06/11/18 03:54 Abs React Lymphs (Man) 0.0 K/mm3 06/11/18 03:54 Monocytes # (Manual) 1.4 K/mm3 (0.0-0.8) H 06/11/18 03:54 Eosinophils # (Manual) 0.0 K/mm3 (0.0-0.4) 06/11/18 03:54 Basophils # (Manual) 0.0 K/mm3 (0.0-0.1) 06/11/18 03:54 Metamyelocytes # 0.0 K/mm3 06/11/18 03:54 Myelocytes # 0.0 K/mm3 06/11/18 03:54 Promyelocytes # 0.0 K/mm3 06/11/18 03:54 Blast Cells # 0.0 K/mm3 06/11/18 03:54 WBC Morphology Not Reportable 06/11/18 03:54 Hypersegmented Neuts Not Reportable 06/11/18 03:54 Hyposegmented Neuts Not Reportable 06/11/18 03:54 Hypogranular Neuts Not Reportable 06/11/18 03:54 Smudge Cells Not Reportable 06/11/18 03:54 Toxic Granulation Not Reportable 06/11/18 03:54 Toxic Vacuolation Not Reportable 06/11/18 03:54 Dohle Bodies Not Reportable 06/11/18 03:54 Pelger-Huet Anomaly Not Reportable 06/11/18 03:54 [place] Rods Not Reportable 06/11/18 03:54 Platelet Estimate Consistent w auto 06/11/18 03:54 Clumped Platelets Not Reportable 06/11/18 03:54 Plt Clumps, EDTA Not Reportable 06/11/18 03:54 Large Platelets Not Reportable 06/11/18 03:54 Giant Platelets Not Reportable 06/11/18 03:54 Platelet Satelliting Not Reportable 06/11/18 03:54 Plt Morphology Comment Not Reportable 06/11/18 03:54 RBC Morphology Not Reportable 06/11/18 03:54 Dimorphic RBCs Not Reportable 06/11/18 03:54 Polychromasia Not Reportable 06/11/18 03:54 Hypochromasia Not Reportable 06/11/18 03:54 Poikilocytosis Not Reportable 06/11/18 03:54 Anisocytosis Few 06/11/18 03:54 Microcytosis Not Reportable 06/11/18 03:54 Macrocytosis Not Reportable 06/11/18 03:54 Spherocytes Not Reportable 06/11/18 03:54 Pappenheimer Bodies Not Reportable 06/11/18 03:54 Sickle Cells Not Reportable 06/11/18 03:54 Target Cells Not Reportable 06/11/18 03:54 Tear Drop Cells Not Reportable 06/11/18 03:54 Ovalocytes Not Reportable 06/11/18 03:54 Helmet Cells Not Reportable 06/11/18 03:54 [place] Bodies Not Reportable 06/11/18 03:54 [place] Rings Not Reportable 06/11/18 03:54 Ramakrishna Cells Not Reportable 06/11/18 03:54 Bite Cells Not Reportable 06/11/18 03:54 Crenated Cell Not Reportable 06/11/18 03:54 Elliptocytes Not Reportable 06/11/18 03:54 Acanthocytes (Spur) Not Reportable 06/11/18 03:54 Rouleaux Not Reportable 06/11/18 03:54 Hemoglobin C Crystals Not Reportable 06/11/18 03:54 Schistocytes Not Reportable 06/11/18 03:54 Malaria parasites Not Reportable 06/11/18 03:54 Toby Bodies Not Reportable 06/11/18 03:54 Hem Pathologist Commnt No 06/11/18 03:54 VBG pH 7.425 (7.320-7.420) H 06/11/18 03:54 Sodium 137 mmol/L (137-145) 06/12/18 05:18 Potassium 4.5 mmol/L (3.6-5.0) 06/12/18 05:18 Chloride 105.7 mmol/L (98-107) 06/12/18 05:18 Carbon Dioxide 17 mmol/L (22-30) L 06/12/18 05:18 Anion Gap 19 mmol/L 06/12/18 05:18 BUN 23 mg/dL (9-20) H 06/12/18 05:18 Creatinine 1.0 mg/dL (0.8-1.5) 06/12/18 05:18 Estimated GFR > 60 ml/min 06/12/18 05:18 BUN/Creatinine Ratio 23 % 06/12/18 05:18 Glucose 76 mg/dL (75-100) 06/12/18 05:18 POC Glucose 148 (70-105) H 06/12/18 09:57 Lactic Acid 1.80 mmol/L (0.7-2.0) 06/11/18 14:03 Calcium 8.0 mg/dL (8.4-10.2) L 06/12/18 05:18 Phosphorus 4.60 mg/dL (2.5-4.5) H 06/11/18 14:03 Magnesium 2.20 mg/dL (1.7-2.3) 06/11/18 14:03 Urine Color Yellow (Yellow) 06/11/18 Unknown Urine Turbidity Clear (Clear) 06/11/18 Unknown Urine pH 5.0 (5.0-7.0) 06/11/18 Unknown Ur Specific [place] 1.032 (1.003-1.030) H 06/11/18 Unknown Urine Protein <15 mg/dl mg/dL (Negative) 06/11/18 Unknown Urine Glucose (UA) >=500 mg/dL (Negative) 06/11/18 Unknown Urine Ketones Neg mg/dL (Negative) 06/11/18 Unknown Urine Blood Neg (Negative) 06/11/18 Unknown Urine Nitrite Neg (Negative) 06/11/18 Unknown Urine Bilirubin Neg (Negative) 06/11/18 Unknown Urine Urobilinogen 2.0 mg/dL (<2.0) 06/11/18 Unknown Ur Leukocyte Esterase Neg (Negative) 06/11/18 Unknown Urine WBC (Auto) 1.0 /HPF (0.0-6.0) 06/11/18 Unknown Urine RBC (Auto) 3.0 /HPF (0.0-6.0) 06/11/18 Unknown U Epithel Cells (Auto) 1.0 /HPF (0-13.0) 06/11/18 Unknown Urine Mucus Few /HPF 06/11/18 Unknown Active Medications - Current Medications Current Medications: Generic Name Dose Route Start Last Admin Trade Name Freq PRN Reason Stop Dose Admin Acetaminophen 650 mg 06/11/18 13:41 Tylenol PO Q4H PRN Pain MILD(1-3)/Fever >100.5/JOHNSON Albuterol 2.5 mg 06/11/18 14:30 Proventil IH Q4HRT PRN Shortness Of Breath Carvedilol 3.125 mg 06/11/18 14:00 06/12/18 10:15 Coreg PO 3.125 mg BID MACIEJ Administration Dextrose 0 ml 06/11/18 12:04 D50w (25gm) Syringe IV PRN PRN Hypoglycemia Diphenhydramine HCl 25 mg 06/11/18 14:00 06/12/18 10:14 Benadryl PO 25 mg DAILY MACIEJ Administration Famotidine 20 mg 06/11/18 14:00 06/12/18 10:15 Pepcid IV 20 mg BID MACIEJ Administration Gabapentin 800 mg 06/11/18 14:30 06/12/18 10:16 Neurontin PO 800 mg BID MACIEJ Administration Hydromorphone HCl 0.5 mg 06/11/18 13:41 Dilaudid IV Q3H PRN Pain , Severe (7-10) Hydroxyzine HCl 25 mg 06/11/18 22:00 06/11/18 23:55 Atarax PO 25 mg QHS MACIEJ Administration Sodium Chloride 1,000 mls @ 100 mls/hr 06/11/18 14:00 06/11/18 19:41 Nacl 0.9% 1000 Ml IV 100 mls/hr DIRECT MACIEJ Administration Ceftriaxone Sodium 2 gm in 100 mls @ 200 mls/hr 06/12/18 20:00 Rocephin/Ns 2 Gm/100 Ml IV Q24H COUNTS INCLUDE 234 BEDS AT THE [facility] Protocol Insulin Glargine 30 units 06/11/18 14:00 06/12/18 09:56 Lantus SUB-Q 30 units BID MACIEJ Administration Insulin Human Lispro 0 unit 06/11/18 14:00 06/12/18 09:54 Humalog SUB-Q Not Given Q4HR COUNTS INCLUDE 234 BEDS AT THE [facility] Protocol Latanoprost 1 drops 06/11/18 18:00 06/11/18 23:00 Latanoprost 0.005% OU 1 drops QPM MACIEJ Administration Losartan Potassium 50 mg 06/12/18 10:00 06/12/18 10:17 Cozaar PO Not Given QDAY COUNTS INCLUDE 234 BEDS AT THE [facility] Metoclopramide HCl 10 mg 06/11/18 13:41 Reglan IV Q6H PRN Nausea And Vomiting Ondansetron HCl 4 mg 06/11/18 13:41 Zofran IV Q3H PRN Nausea And Vomiting Oxycodone/Acetaminophen 1 tab 06/11/18 13:41 Percocet 5/325 PO Q6H PRN Pain, Moderate (4-6) Sodium Chloride 10 ml 06/11/18 22:00 06/12/18 10:01 Sodium Chloride Flush Syringe 10 Ml IV 10 ml BID MACIEJ Administration Sodium Chloride 10 ml 06/11/18 13:41 Sodium Chloride Flush Syringe 10 Ml IV PRN PRN LINE FLUSH Tamsulosin HCl 0.4 mg 06/11/18 14:00 06/11/18 15:57 Flomax PO 0.4 mg DAILY MACIEJ Administration Tizanidine HCl 4 mg 06/11/18 14:00 06/11/18 15:35 Zanaflex PO 4 mg DAILY MACIEJ Administration Tramadol HCl 50 mg 06/11/18 14:00 06/11/18 22:59 Ultram PO 50 mg BID MACIEJ Administration Trazodone HCl 100 mg 06/11/18 22:00 06/11/18 22:58 Desyrel PO 100 mg QHS MACIEJ Administration
[2018-06-12] MEDS ORDERED: ULTRAM ONE (10:35)
[2018-06-12] MEDS: ZANAFLEX PO SCH (10:39)
[2018-06-12] MEDS: ULTRAM PO SCH ×2 (10:39→21:41)
[2018-06-12] MEDS: FLOMAX PO SCH (10:39)
[2018-06-12 14:30] LABS: BUN/Creatinine Ratio 21; Blood Urea Nitrogen 19 mg/dL (9-20); Calcium 7.7 mg/dL (8.4-10.2); Hemolysis Index 21
[2018-06-12] MEDS: LATANOPROST 0.005% OU SCH (19:05)
[2018-06-12] MEDS: ATARAX PO SCH (21:06)
[2018-06-12] MEDS: LOVENOX SUB-Q SCH (21:08)
[2018-06-12] MEDS: HABITROL TD SCH (21:40)
[2018-06-12] MEDS: DESYREL PO SCH (21:44)
[2018-06-12] MEDS: ROCEPHIN/NS 2 GM/100 ML 2 GM/100 ML BAG IV SCH (21:45)
[2018-06-12] MEDS ORDERED: NORMODYNE IV ONE (23:37)
[2018-06-13] MEDS: NACL 0.9% 1000 ML 1,000 ML IV SCH ×2 (05:04→18:13)
[2018-06-13 08:13] LABS: BUN/Creatinine Ratio TNR; Blood Urea Nitrogen TNR mg/dL (9-20)
[2018-06-13 08:14] LABS: Calcium TNR mg/dL (8.4-10.2); Hemolysis Index TNR
[2018-06-13] MEDS: HumaLOG SUB-Q SCH ×4 (08:25→22:32)
[2018-06-13] MEDS: COZAAR PO SCH (10:00)
[2018-06-13 10:55] LABS: BUN/Creatinine Ratio 17; Blood Urea Nitrogen 17 mg/dL (9-20); Calcium 8.6 mg/dL (8.4-10.2); Hemolysis Index 25
[2018-06-13] MEDS: NEURONTIN PO SCH ×2 (10:58→22:28)
[2018-06-13] MEDS: ZANAFLEX PO SCH (10:58)
[2018-06-13] MEDS: HABITROL TD SCH (10:58)
[2018-06-13] MEDS: FLOMAX PO SCH (10:58)
[2018-06-13] MEDS: COREG PO SCH ×2 (10:59→22:29)
[2018-06-13] MEDS: PEPCID IV SCH ×2 (11:00→22:29)
[2018-06-13] MEDS: SODIUM CHLORIDE FLUSH SYRINGE 10 ML IV SCH ×2 (11:01→23:13)
[2018-06-13] MEDS: ULTRAM PO SCH ×2 (11:02→23:15)
[2018-06-13] MEDS: BENADRYL PO SCH (13:27)
[2018-06-13] MEDS: LANTUS SUB-Q SCH (13:27)
[2018-06-13] MEDS: LATANOPROST 0.005% OU SCH (18:13)
--- NOTE | 2018-06-13 18:40 | Progress Note ---
Assessment and Plan Assessment and plan: --Hyperglycemia/hyperosmolar nonketotic state s/p insulin drip, Accu-Chek sliding scale coverage and ADA diet NovoLog and Lantus insulin, A1c 17 Diabetic education and nutrition consult --Episode of hypoglycemia; Lantus dose adjusted Reduced to Lantus 20 units a.m., 10 units p.m. Guiding scale coverage, closely monitor --Hypertension; moderate control Continue current antihypertensives and when necessary medications --Diabetic neuropathy; on gabapentin --Gastroesophageal reflux disease; continue Protonix --History of BPH; stable on Flomax -- obesity; advised weight reduction and medically stable --DVT prophylaxis; Lovenox possible discharge in 1-2 days if stable Possible discharge home tomorrow if stable Plan of care is reviewed with the patient's nurse and the patient History Interval history: Patient seen and examined this morning medical records reviewed Patient feels slightly better and had an episode of hypoglycemia Alert awake oriented 3, vital signs noted Hospitalist Physical - Constitutional Vitals: Temp Pulse Resp BP Pulse Ox 97.7 F 75 16 136/85 97 06/13/18 17:03 06/13/18 17:03 06/13/18 17:03 06/13/18 17:03 06/13/18 17:03 General appearance: Present: no acute distress, well-nourished - EENT Eyes: Present: PERRL, EOM intact - Neck Neck: Present: supple, normal ROM - Respiratory Respiratory effort: normal Respiratory: negative: rales, rhonchi, wheezing - Cardiovascular Rhythm: regular Heart Sounds: Present: S1 & S2 - Extremities Extremities: no ischemia, No edema Peripheral Pulses: within normal limits - Abdominal General gastrointestinal: soft, non-tender, non-distended, normal bowel sounds - Integumentary Integumentary: Present: clear, warm - Psychiatric Psychiatric: appropriate mood/affect, cooperative - Neurologic Neurologic: CNII-XII intact, moves all extremities Results - Labs CBC & Chem 7: 06/11/18 03:54 06/13/18 10:24 Labs: Laboratory Last Values WBC 20.4 K/mm3 (4.5-11.0) H 06/11/18 03:54 RBC 5.34 M/mm3 (3.65-5.03) H 06/11/18 03:54 Hgb 15.1 gm/dl (11.8-15.2) 06/11/18 03:54 Hct 45.3 % (35.5-45.6) 06/11/18 03:54 MCV 85 fl (84-94) 06/11/18 03:54 MCH 28 pg (28-32) 06/11/18 03:54 MCHC 33 % (32-34) 06/11/18 03:54 RDW 13.6 % (13.2-15.2) 06/11/18 03:54 Plt Count 240 K/mm3 (140-440) 06/11/18 03:54 Add Manual Diff Complete 06/11/18 03:54 Total Counted 100 06/11/18 03:54 Seg Neuts % (Manual) 73.0 % (40.0-70.0) H 06/11/18 03:54 Band Neutrophils % 0 % 06/11/18 03:54 Lymphocytes % (Manual) 20.0 % (13.4-35.0) 06/11/18 03:54 Reactive Lymphs % (Man) 0 % 06/11/18 03:54 Monocytes % (Manual) 7.0 % (0.0-7.3) 06/11/18 03:54 Eosinophils % (Manual) 0 % (0.0-4.3) 06/11/18 03:54 Basophils % (Manual) 0 % (0.0-1.8) 06/11/18 03:54 Metamyelocytes % 0 % 06/11/18 03:54 Myelocytes % 0 % 06/11/18 03:54 Promyelocytes % 0 % 06/11/18 03:54 Blast Cells % 0 % 06/11/18 03:54 Nucleated RBC % Not Reportable 06/11/18 03:54 Seg Neutrophils # Man 14.9 K/mm3 (1.8-7.7) H 06/11/18 03:54 Band Neutrophils # 0.0 K/mm3 06/11/18 03:54 Lymphocytes # (Manual) 4.1 K/mm3 (1.2-5.4) 06/11/18 03:54 Abs React Lymphs (Man) 0.0 K/mm3 06/11/18 03:54 Monocytes # (Manual) 1.4 K/mm3 (0.0-0.8) H 06/11/18 03:54 Eosinophils # (Manual) 0.0 K/mm3 (0.0-0.4) 06/11/18 03:54 Basophils # (Manual) 0.0 K/mm3 (0.0-0.1) 06/11/18 03:54 Metamyelocytes # 0.0 K/mm3 06/11/18 03:54 Myelocytes # 0.0 K/mm3 06/11/18 03:54 Promyelocytes # 0.0 K/mm3 06/11/18 03:54 Blast Cells # 0.0 K/mm3 06/11/18 03:54 WBC Morphology Not Reportable 06/11/18 03:54 Hypersegmented Neuts Not Reportable 06/11/18 03:54 Hyposegmented Neuts Not Reportable 06/11/18 03:54 Hypogranular Neuts Not Reportable 06/11/18 03:54 Smudge Cells Not Reportable 06/11/18 03:54 Toxic Granulation Not Reportable 06/11/18 03:54 Toxic Vacuolation Not Reportable 06/11/18 03:54 Dohle Bodies Not Reportable 06/11/18 03:54 Pelger-Huet Anomaly Not Reportable 06/11/18 03:54 [place] Rods Not Reportable 06/11/18 03:54 Platelet Estimate Consistent w auto 06/11/18 03:54 Clumped Platelets Not Reportable 06/11/18 03:54 Plt Clumps, EDTA Not Reportable 06/11/18 03:54 Large Platelets Not Reportable 06/11/18 03:54 Giant Platelets Not Reportable 06/11/18 03:54 Platelet Satelliting Not Reportable 06/11/18 03:54 Plt Morphology Comment Not Reportable 06/11/18 03:54 RBC Morphology Not Reportable 06/11/18 03:54 Dimorphic RBCs Not Reportable 06/11/18 03:54 Polychromasia Not Reportable 06/11/18 03:54 Hypochromasia Not Reportable 06/11/18 03:54 Poikilocytosis Not Reportable 06/11/18 03:54 Anisocytosis Few 06/11/18 03:54 Microcytosis Not Reportable 06/11/18 03:54 Macrocytosis Not Reportable 06/11/18 03:54 Spherocytes Not Reportable 06/11/18 03:54 Pappenheimer Bodies Not Reportable 06/11/18 03:54 Sickle Cells Not Reportable 06/11/18 03:54 Target Cells Not Reportable 06/11/18 03:54 Tear Drop Cells Not Reportable 06/11/18 03:54 Ovalocytes Not Reportable 06/11/18 03:54 Helmet Cells Not Reportable 06/11/18 03:54 [place] Bodies Not Reportable 06/11/18 03:54 [place] Rings Not Reportable 06/11/18 03:54 Ramakrishna Cells Not Reportable 06/11/18 03:54 Bite Cells Not Reportable 06/11/18 03:54 Crenated Cell Not Reportable 06/11/18 03:54 Elliptocytes Not Reportable 06/11/18 03:54 Acanthocytes (Spur) Not Reportable 06/11/18 03:54 Rouleaux Not Reportable 06/11/18 03:54 Hemoglobin C Crystals Not Reportable 06/11/18 03:54 Schistocytes Not Reportable 06/11/18 03:54 Malaria parasites Not Reportable 06/11/18 03:54 Toby Bodies Not Reportable 06/11/18 03:54 Hem Pathologist Commnt No 06/11/18 03:54 VBG pH 7.425 (7.320-7.420) H 06/11/18 03:54 Sodium 138 mmol/L (137-145) 06/13/18 10:24 Potassium 4.3 mmol/L (3.6-5.0) 06/13/18 10:24 Chloride 106.0 mmol/L (98-107) 06/13/18 10:24 Carbon Dioxide 22 mmol/L (22-30) 06/13/18 10:24 Anion Gap 14 mmol/L 06/13/18 10:24 BUN 17 mg/dL (9-20) 06/13/18 10:24 Creatinine 1.0 mg/dL (0.8-1.5) 06/13/18 10:24 Estimated GFR > 60 ml/min 06/13/18 10:24 BUN/Creatinine Ratio 17 % 06/13/18 10:24 Glucose 207 mg/dL (75-100) H 06/13/18 10:24 POC Glucose 151 (70-105) H 06/13/18 16:10 Hemoglobin A1c 17.0 % (4-6) H 06/13/18 06:24 Lactic Acid 1.80 mmol/L (0.7-2.0) 06/11/18 14:03 Calcium 8.6 mg/dL (8.4-10.2) 06/13/18 10:24 Phosphorus TNR 06/13/18 06:24 Magnesium TNR 06/13/18 06:24 Urine Color Yellow (Yellow) 06/11/18 Unknown Urine Turbidity Clear (Clear) 06/11/18 Unknown Urine pH 5.0 (5.0-7.0) 06/11/18 Unknown Ur Specific [place] 1.032 (1.003-1.030) H 06/11/18 Unknown Urine Protein <15 mg/dl mg/dL (Negative) 06/11/18 Unknown Urine Glucose (UA) >=500 mg/dL (Negative) 06/11/18 Unknown Urine Ketones Neg mg/dL (Negative) 06/11/18 Unknown Urine Blood Neg (Negative) 06/11/18 Unknown Urine Nitrite Neg (Negative) 06/11/18 Unknown Urine Bilirubin Neg (Negative) 06/11/18 Unknown Urine Urobilinogen 2.0 mg/dL (<2.0) 06/11/18 Unknown Ur Leukocyte Esterase Neg (Negative) 06/11/18 Unknown Urine WBC (Auto) 1.0 /HPF (0.0-6.0) 06/11/18 Unknown Urine RBC (Auto) 3.0 /HPF (0.0-6.0) 06/11/18 Unknown U Epithel Cells (Auto) 1.0 /HPF (0-13.0) 06/11/18 Unknown Urine Mucus Few /HPF 06/11/18 Unknown Active Medications - Current Medications Current Medications: Generic Name Dose Route Start Last Admin Trade Name Freq PRN Reason Stop Dose Admin Acetaminophen 650 mg 06/11/18 13:41 Tylenol PO Q4H PRN Pain MILD(1-3)/Fever >100.5/JOHNSON Albuterol 2.5 mg 06/11/18 14:30 Proventil IH Q4HRT PRN Shortness Of Breath Carvedilol 3.125 mg 06/11/18 14:00 06/13/18 10:59 Coreg PO 3.125 mg BID MACIEJ Administration Dextrose 0 ml 06/11/18 12:04 D50w (25gm) Syringe IV PRN PRN Hypoglycemia Diphenhydramine HCl 25 mg 06/11/18 14:00 06/13/18 13:27 Benadryl PO 25 mg DAILY MACIEJ Administration Enoxaparin Sodium 40 mg 06/12/18 22:00 06/12/18 21:08 Lovenox SUB-Q 40 mg QDAY@2200 MACIEJ Administration Famotidine 20 mg 06/11/18 14:00 06/13/18 11:00 Pepcid IV 20 mg BID MACIEJ Administration Gabapentin 800 mg 06/11/18 14:30 06/13/18 10:58 Neurontin PO 800 mg BID MACIEJ Administration Hydromorphone HCl 0.5 mg 06/11/18 13:41 Dilaudid IV Q3H PRN Pain , Severe (7-10) Hydroxyzine HCl 25 mg 06/11/18 22:00 06/12/18 21:06 Atarax PO 25 mg QHS MACIEJ Administration Ceftriaxone Sodium 2 gm in 100 mls @ 200 mls/hr 06/12/18 20:00 06/12/18 21:45 Rocephin/Ns 2 Gm/100 Ml IV Not Given Q24H [facility] Protocol Insulin Glargine 10 units 06/13/18 22:00 Lantus SUB-Q QHS MACIEJ Insulin Glargine 25 units 06/14/18 08:00 Lantus SUB-Q QAMDIAB [facility] Insulin Human Lispro 0 unit 06/12/18 16:30 06/13/18 18:13 Humalog SUB-Q 2 unit ACHS [facility] Administration Protocol Latanoprost 1 drops 06/11/18 18:00 06/13/18 18:13 Latanoprost 0.005% OU 1 drops QPM [facility] Administration Losartan Potassium 50 mg 06/12/18 10:00 06/13/18 10:00 Cozaar PO Not Given QDAY [facility] Metoclopramide HCl 10 mg 06/11/18 13:41 Reglan IV Q6H PRN Nausea And Vomiting Nicotine 14 mg 06/12/18 20:00 06/13/18 10:58 Habitrol TD 14 mg QDAY [facility] Administration Ondansetron HCl 4 mg 06/11/18 13:41 Zofran IV Q3H PRN Nausea And Vomiting Oxycodone/Acetaminophen 1 tab 06/11/18 13:41 Percocet 5/325 PO Q6H PRN Pain, Moderate (4-6) Sodium Chloride 10 ml 06/11/18 22:00 06/13/18 11:01 Sodium Chloride Flush Syringe 10 Ml IV 10 ml BID MACIEJ Administration Sodium Chloride 10 ml 06/11/18 13:41 Sodium Chloride Flush Syringe 10 Ml IV PRN PRN LINE FLUSH Tamsulosin HCl 0.4 mg 06/11/18 14:00 06/13/18 10:58 Flomax PO 0.4 mg DAILY MACIEJ Administration Tizanidine HCl 4 mg 06/11/18 14:00 06/13/18 10:58 Zanaflex PO 4 mg DAILY MACIEJ Administration Tramadol HCl 50 mg 06/11/18 14:00 06/13/18 11:02 Ultram PO 50 mg BID MACIEJ Administration Trazodone HCl 100 mg 06/11/18 22:00 06/12/18 21:44 Desyrel PO 100 mg QHS MACIEJ Administration
[2018-06-13] MEDS ORDERED: LANTUS SUB-Q SCH (22:00)
[2018-06-13] MEDS: ROCEPHIN/NS 2 GM/100 ML 2 GM/100 ML BAG IV SCH (22:28)
[2018-06-13] MEDS: ATARAX PO SCH (22:28)
[2018-06-13] MEDS: LOVENOX SUB-Q SCH (22:29)
[2018-06-13] MEDS: DESYREL PO SCH (23:13)
[2018-06-14] MEDS: HumaLOG SUB-Q SCH ×2 (07:45→12:30)
[2018-06-14] MEDS ORDERED: LANTUS SUB-Q SCH (08:00)
[2018-06-14] MEDS: BENADRYL PO SCH (09:13)
[2018-06-14] MEDS: ZANAFLEX PO SCH (09:13)
[2018-06-14] MEDS: NEURONTIN PO SCH (09:14)
[2018-06-14] MEDS: FLOMAX PO SCH (09:14)
[2018-06-14] MEDS: ULTRAM PO SCH (09:15)
[2018-06-14] MEDS: COZAAR PO SCH (09:15)
[2018-06-14] MEDS: COREG PO SCH (09:15)
[2018-06-14] MEDS: HABITROL TD SCH (09:16)
[2018-06-14] MEDS: PEPCID IV SCH (09:16)
[2018-06-14] MEDS ORDERED: PEPCID PO SCH ×2 (10:00→22:00)
[2018-06-14] MEDS: SODIUM CHLORIDE FLUSH SYRINGE 10 ML IV SCH (10:35)
[2018-06-14] MEDS ORDERED: MORPHINE IV ONE (11:00)
[2018-06-14 12:43] LABS: Creatine Kinase MB 2.5 ng/mL (0.0-4.0)
--- NOTE | 2018-06-14 14:09 | Discharge Summary ---
Providers - Providers Date of Admission: 06/11/18 12:02 Date of discharge: 06/14/18 Attending physician: TED PATEL Primary care physician: [facility], Hospitalization Reason for admission: Hyperglycemia, abdominal pain Condition: Stable Pertinent studies: CT abdomen and pelvis: no acute abnormality noted Hospital course: 58-year-old male patient was admitted through ED with the complaints of abdominal pain and hyperglycemia. managed symptomatically, CT abdomen and pelvis is unremarkable. Patient initially receive insulin drip in the ER and later managed with long acting insulin.HbA1c is 17., Received DM education and nutrition education. Symptoms significantly improved. Today pt is comfortable,no new complaints, vital signs stable,physical exam is unremarkable. Patient is stable at discharge Discharge Diagnosis: --Hyperglycemia/hyperosmolar nonketotic state s/p insulin drip, Accu-Chek sliding scale coverage and ADA diet NovoLog and Lantus insulin, A1c 17 Diabetic education and nutrition consult --Episode of hypoglycemia; Lantus dose adjusted Reduced to Lantus 20 units a.m., 10 units p.m. [place] scale coverage, closely monitor --Hypertension; moderate control antihypertensives and when necessary medications --Diabetic neuropathy; on gabapentin --Gastroesophageal reflux disease; continue Protonix --History of BPH; stable on Flomax -- obesity; advised weight reduction and medically stable --DVT prophylaxis; Lovenox possible discharge in 1-2 days if stable Patient is stable at discharge Plan of care is reviewed with the patient's nurse and the patient Disposition: [id number] HOME UNDER HOME [facility] Time spent for discharge: 32 min Core Measure Documentation - Palliative Care Palliative Care/ Comfort Measures: Not Applicable - Core Measures Any of the following diagnoses?: none Exam - Constitutional Vitals: Temp Pulse Resp BP Pulse Ox 97.4 F L 79 20 143/87 98 06/14/18 12:34 06/14/18 10:21 06/14/18 12:34 06/14/18 12:33 06/14/18 09:15 General appearance: Present: no acute distress, well-nourished - EENT Eyes: Present: PERRL, EOM intact - Neck Neck: Present: supple, normal ROM - Respiratory Respiratory effort: normal - Cardiovascular Rhythm: regular Heart Sounds: Present: S1 & S2 - Extremities Extremities: no ischemia, No edema - Abdominal General gastrointestinal: Present: soft, non-tender, non-distended - Integumentary Integumentary: Present: clear, warm - Musculoskeletal Musculoskeletal: strength equal bilaterally - Psychiatric Psychiatric: appropriate mood/affect, cooperative - Neurologic Neurologic: CNII-XII intact, moves all extremities Plan Activity: no restrictions Diet: diabetic Special Instructions: smoking cessation Additional Instructions: 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 Smoking cessation advised nicotine patch as needed. You have many home medications, advised to check with primary care physician for medication review Follow up with: MARLENA SZYMANSKI MD [Primary Care Provider] - 7 Days Prescriptions: Losartan [Cozaar] 50 mg PO QDAY #30 tablet Nicotine [Habitrol] 14 mg TD QDAY #30 patch
[2018-06-14 14:27] VITALS: BP 143/87
== END 2018-06-14 16:00 | disposition home health service (06) | DRG 638 ==
LOC: ED 02:39 → IMCU 12:02 → 3A 06-12 11:32
PROVIDERS: ADMIT Internal Medicine; ATTEND Internal Medicine
DX: E11.00 Type 2 diabetes mellitus with hyperosmolarity without nonketotic hyperglycemic-hyperosmolar coma (NKHHC) (principal); E87.1 Hypo-osmolality and hyponatremia; I10 Essential (primary) hypertension; N40.0 Benign prostatic hyperplasia without lower urinary tract symptoms; K21.0 Gastro-esophageal reflux disease with esophagitis; F17.200 Nicotine dependence, unspecified, uncomplicated; E11.42 Type 2 diabetes mellitus with diabetic polyneuropathy; E66.9 Obesity, unspecified; E11.649 Type 2 diabetes mellitus with hypoglycemia without coma; E11.40 Type 2 diabetes mellitus with diabetic neuropathy, unspecified; Z90.49 Acquired absence of other specified parts of digestive tract; Z79.51 Long term (current) use of inhaled steroids; Z79.899 Other long term (current) drug therapy; Z68.38 Body mass index [BMI] 38.0-38.9, adult; Z71.3 Dietary counseling and surveillance; Z79.84 Long term (current) use of oral hypoglycemic drugs
CPT/HCPCS: 36415; 74176; 80048; 81001; 82140; 82550; 82553; 82805; 82962; 83036; 83735; 84100; 84484; 85007; 85025; 87040; 93005; 93010; 94640; 96365; 96372; 96375; G0378; J0696; J1170; J1650; J1815; J2270; J2405; J7030

== ENCOUNTER 2018-06-24 00:33 | Inpatient (IN) | payer MEDICARE ==
[2018-06-24] MEDS ORDERED: NACL 0.9% 1000 ML 1,000 ML IV ONE ×2 (00:45)
[2018-06-24] MEDS ORDERED: PROTONIX IV ONE (00:45)
[2018-06-24] MEDS ORDERED: NACL 0.9% 1000 ML 2,000 ML IV ONE ×2 (00:45→03:32)
[2018-06-24] MEDS ORDERED: ROCEPHIN 1,000 MG in NACL 0.9% 50 ML IV STA (00:45)
--- NOTE | 2018-06-24 00:48 | Emergency Department Report ---
ED General Adult HPI - General Chief complaint: Syncope Stated complaint: SYNCOPAL EPISODE Time Seen by Provider: 06/24/18 00:43 Source: patient, EMS (verbal report received from EMS.ems notes not available at time of chart dictation), RN notes reviewed, old records reviewed Mode of arrival: Stretcher Limitations: Physical Limitation - History of Present Illness Initial comments: This is a 58-year-old gentleman. The patient is not known to this provider previously. His past medical history includes hepatitis B and C, diabetes, GERD, recent admission to this hospital for presumed diabetic ketoacidosis. The patient is brought to the hospital by emergency medical services for syncope. As per verbal report from EMS, patient found on floor, after a fall was heard. The patient reports no headache or neck pain or chest pain or abdominal pain. He has chronic right-sided radicular pain. He does not recall passing out. The patient is somewhat of a poor historian. The patient denies focal extremity weakness, numbness. The patient believes that he was throwing up "red stuff", and reports that his bowel movements look like "black iodine." In the emergency room, patient has a rectal temperature of 97, moving 4 extremities spontaneously, is found to have borderline hypoxia, with a pulse ox of 92-95%, has muffled heart sounds, and is quite hypotensive. Blood pressure is in the 60s on manual. Emergent stat transthoracic echocardiogram performed by this provider has demonstrated what appears to be a hypokinetic left ventricle, questionable pericardial effusion, and a questionable dilated right atrium. There may also be a component of global hypokinesis. The image quality is poor secondary to the patient's body habitus. The patient does not recall passing out. -: Sudden Severity scale (0 -10): 0 Quality: other (patient not able to describe qualitative nature of his symptoms, exacerbating or relieving factors.) - Related Data Home Medications Medication Instructions Recorded Confirmed Last Taken ALBUTEROL Inhaler (OR & NICU) 1 puff IH BID 06/11/18 06/11/18 Unknown [ProAir HFA Inhaler] Carvedilol [Coreg] 3.125 mg PO BID 06/11/18 06/11/18 Unknown Diclofenac [Voltaren Dr] 75 mg PO DAILY 06/11/18 06/11/18 Unknown Famotidine [Pepcid] 40 mg PO QHS 06/11/18 06/11/18 Unknown Gabapentin [Neurontin] 800 mg PO BID 06/11/18 06/11/18 Unknown Lansoprazole [Heartburn Treatment 15 mg PO DAILY 06/11/18 06/11/18 Unknown 24 Hour] Loratadine [Claritin] 10 mg PO DAILY 06/11/18 06/11/18 Unknown Olmesartan Medoxomil 20 mg PO DAILY 06/11/18 06/11/18 Unknown Tamsulosin [Flomax] 0.4 mg PO DAILY 06/11/18 06/11/18 Unknown Travoprost [Travatan Z 0.004%] 1 drop OU QHS 06/11/18 06/11/18 Unknown tiZANidine [Zanaflex] 4 mg PO DAILY 06/11/18 06/11/18 Unknown traMADol [Ultram 50 MG tab] 50 mg PO BID 06/11/18 06/11/18 Unknown traZODone [Desyrel] 100 mg PO QHS 06/11/18 06/11/18 Unknown Insulin Detemir [Levemir Flextouch] 15 unit SQ BID 06/13/18 06/13/18 Unknown Insulin NPH Human Isophane 25 unit SQ ACHS 06/13/18 06/13/18 Unknown [HumuLIN N] Previous Rx's Medication Instructions Recorded Last Taken Type Losartan [Cozaar] 50 mg PO QDAY #30 tablet 06/14/18 Unknown Rx Nicotine [Habitrol] 14 mg TD QDAY #30 patch 06/14/18 Unknown Rx Allergies Allergy/AdvReac Type Severity Reaction Status Date / Time No Known Allergies Allergy Verified 06/24/18 02:53 ED Review of Systems ROS: Stated complaint: SYNCOPAL EPISODE Other details as noted in HPI Comment: Unobtainable due to pts medical conditions Constitutional: malaise Cardiovascular: denies: chest pain Gastrointestinal: nausea, vomiting Musculoskeletal: back pain Neurological: weakness, confusion ED Past Medical Hx - Past Medical History Previous Medical History?: Yes Hx Congestive Heart Failure: No Hx Diabetes: Yes Hx GERD: Yes Hx Headaches / Migraines: Yes Hx Seizures: No Hx Asthma: Yes Hx COPD: No Hx Dementia: No Hx HIV: No Additional medical history: Hep B&C. - Surgical History Past Surgical History?: Yes Hx Cholecystectomy: Yes Additional Surgical History: Hernia Repair, Cyst left thigh - Social History Smoking Status: Current Some Day Smoker - Medications Home Medications: Home Medications Medication Instructions Recorded Confirmed Last Taken Type ALBUTEROL Inhaler (OR & NICU) 1 puff IH BID 06/11/18 06/11/18 Unknown History [ProAir HFA Inhaler] Carvedilol [Coreg] 3.125 mg PO BID 06/11/18 06/11/[address] [Voltaren Dr] 75 mg PO DAILY 06/11/18 06/11/18 Unknown History Famotidine [Pepcid] 40 mg PO QHS 06/11/18 06/11/18 Unknown History Gabapentin [Neurontin] 800 mg PO BID 06/11/18 06/11/18 Unknown History Lansoprazole [Heartburn Treatment 15 mg PO DAILY 06/11/18 06/11/18 Unknown History 24 Hour] Loratadine [Claritin] 10 mg PO DAILY 06/11/18 06/11/18 Unknown History Olmesartan Medoxomil 20 mg PO DAILY 06/11/18 06/11/18 Unknown History Tamsulosin [Flomax] 0.4 mg PO DAILY 06/11/18 06/11/18 Unknown History Travoprost [Travatan Z 0.004%] 1 drop OU QHS 06/11/18 06/11/18 Unknown History tiZANidine [Zanaflex] 4 mg PO DAILY 06/11/18 06/11/18 Unknown History traMADol [Ultram 50 MG tab] 50 mg PO BID 06/11/18 06/11/18 Unknown History traZODone [Desyrel] 100 mg PO QHS 06/11/18 06/11/18 Unknown History Insulin Detemir [Levemir Flextouch] 15 unit SQ BID 06/13/18 06/13/18 Unknown H istory Insulin NPH Human Isophane 25 unit SQ ACHS 06/13/18 06/13/18 Unknown History [HumuLIN N] Losartan [Cozaar] 50 mg PO QDAY #30 tablet 06/14/18 Unknown Rx Nicotine [Habitrol] 14 mg TD QDAY #30 patch 06/14/18 Unknown Rx ED Physical Exam - General Limitations: Physical Limitation General appearance: in no apparent distress - Head Head exam: Present: atraumatic, normocephalic - Eye Eye exam: Present: normal appearance, PERRL, EOMI, other (visual acuity intact to finger counting, color perception, reading at a close distance). Absent: nystagmus - ENT ENT exam: Present: normal exam, normal orophraynx, mucous membranes moist, normal external ear exam - Neck Neck exam: Present: normal inspection, full ROM. Absent: tenderness, m eningismus - Respiratory Respiratory exam: Present: decreased breath sounds. Absent: respiratory distress, wheezes, rales, rhonchi, stridor - Cardiovascular Cardiovascular Exam: Present: regular rate, normal rhythm. Absent: bradycardia, tachycardia, irregular rhythm, normal heart sounds (patient has muffled heart sounds), systolic murmur, diastolic murmur, rubs, gallop - GI/Abdominal GI/Abdominal exam: Present: soft. Absent: distended, tenderness, guarding, rebound, rigid, pulsatile mass - Rectal Rectal exam: Present: normal inspection, normal rectal tone, heme (-) stool. Absent: black stool, bloody stool, fecal impaction, hemorrhoids - Extremities Exam Extremities exam: Present: normal inspection, full ROM, other (there is no long bony tenderness. The muscular compartments are soft. Patient has thready femoral pulses. Difficult to obtain pulses on the dorsalis pedis distribution, radial distribution bilaterally.). Absent: pedal edema, joint swelling, calf tenderness - Back Exam Back exam: Present: normal inspection, full ROM. Absent: tenderness, CVA tenderness (R), paraspinal tenderness, vertebral tenderness - Neurological Exam Neurological exam: Present: alert, other (Extraocular movements intact. Tongue midline. No facial droop. Facial sensation intact to light touch in the V1, V2, V3 distribution bilaterally. 5 and 5 strength in 4 extremities.. Sensation is intact to light touch in 4 extremities.). Absent: motor sensory deficit - Psychiatric Psychiatric exam: Present: flat affect - Skin Skin exam: Present: warm, dry, intact, normal color. Absent: rash ED Course Vital Signs 06/24/18 06/24/18 06/24/18 00:40 00:41 00:45 Temperature 97.9 F Pulse Rate 79 Respiratory 21 Rate Blood Pressure Blood Pressure 60/0 [Left] O2 Sat by Pulse 96 91 Oximetry 06/24/18 06/24/18 06/24/18 01:01 01:15 01:30 Temperature Pulse Rate 75 77 72 Respiratory 21 18 17 Rate Blood Pressure 108/60 91/53 Blood Pressure [Left] O2 Sat by Pulse 95 93 96 Oximetry 06/24/18 06/24/18 06/24/18 01:45 02:00 02:15 Temperature Pulse Rate 73 68 69 Respiratory 16 15 17 Rate Blood Pressure 108/60 114/70 109/67 Blood Pressure [Left] O2 Sat by Pulse 95 96 95 Oximetry 06/24/18 06/24/18 06/24/18 02:30 02:45 03:00 Temperature Pulse Rate 64 64 65 Respiratory 15 15 14 Rate Blood Pressure 92/49 88/52 87/53 Blood Pressure [Left] O2 Sat by Pulse 100 100 99 Oximetry 06/24/18 06/24/18 03:15 04:26 Temperature Pulse Rate 65 73 Respiratory 14 15 Rate Blood Pressure 95/61 Blood Pressure 121/80 [Left] O2 Sat by Pulse 98 100 Oximetry - Reevaluation(s) Reevaluation #1: 06/24/18 01:13 Differential diagnosis, including without limited to: GI bleed, pericardial effusion, pulmonary embolus, dehydration, electrolyte derangement, intracranial injury, intra-abdominal injury Assessment and plan: 58-year-old gentleman with syncope. He is afebrile, hypotensive, with a nonfocal motor examination, borderline hypoxia, hypokinesis noted on bedside echocardiogram. Patient complains of chronic radicular pain. Had an unremarkable CT scan of the abdomen and pelvis at this facility within the past few weeks. 4 L IV fluid ordered wide open. Empiric antibiotics and Protonix ordered. Emergent CT scan of the brain, chest, abdomen and pelvis has been requested. We will reassess after patient has completed initial resuscitation, and initial diagnostics have resulted. No midline cervical spine tenderness, moving 4 extremities spontaneously. Reevaluation #2: 06/24/18 04:29 Blood pressure in the 120s. CT scan of the chest negative for significant disease. Case presented to the Hospital physician, Dr. Jose De Jesus Rodriguez, who has accepted the patient to the medical service. Reevaluation #3: 06/24/18 05:[address] scan of the abdomen and pelvis negative for significant or acute disease. Blood pressure reviewed and appreciated. nursing documentation: patient back from CT. Patient c/o not being able to urinate. Bladder massaged and urine now flowing. Total of 1000 cc urine output noted from condom catheter. VSS. BP 121/80. Will continue to monitor closely. - EJ/Peripheral Line Neck L Time Out Performed: Yes Indications: nurses unable to establis Skin Cleansed in Sterile Fashion: Yes Size: 18 Dressing Placed: Tegaderm Patient Tolerated Procedure: well ED Medical Decision Making - Lab Data Result diagrams: 06/24/18 01:45 06/24/18 02:04 Vital Signs 06/24/18 06/24/18 00:40 00:41 Temperature 97.9 F O2 Sat by Pulse 96 Oximetry - EKG Data -: EKG Interpreted by Me EKG shows normal: sinus rhythm Rate: normal - EKG Data 06/24/18 01:14 EKG shows a sinus rhythm, 75 bpm, a borderline leftward axis, QTC prolonged, low voltage, electrical altered and is not appreciated, there is oral and atrial enlargement, nonspecific T-wave abnormalities, this is an abnormal EKG, but it appears unchanged from prior EKG from 06/14/2018 - Radiology Data Radiology results: pending, report reviewed, image reviewed interpreted by me: X-ray of the chest appears to be unremarkable. Print Report Referring Physician: VISHAL COBB Patient Name: MYRNA OVIEDO Date of : 1960 Sex: Male Report Date: 2018-06-24 Report Status: Finalized Findings [place] [id number] Cat Scan Report Signed Patient: MYRNA OVIEDO MR#: [id number] : 1960 Acct:[id number] Age/Sex: 58 / M ADM Date: 06/24/18 Loc: ED Attending Dr: Ordering Physician: VISHAL COBB MD Date of Service: 06/24/18 Procedure(s): CT angio chest Accession Number(s): [id number] cc: VISHAL COBB MD PROCEDURE: CT ANGIO CHEST TECHNIQUE: A CT angiogram was performed following the intravenous injection of iodinated contrast. Rotational, sagittal, and coronal MIP reconstructions were reviewed. HISTORY: syncope ? pericardia effusion vs PE COMPARISONS: Chest x-ray 06/24/2018 FINDINGS: The heart size is normal. There is no evidence of pericardial effusion. The thoracic aorta is normal in configuration. There is no evidence of pulmonary embolus or congestion. The lungs reveal minimal dependent bibasilar atelectasis. There are no infiltrates or effusions. There is a small hiatal hernia. There is no evidence of adenopathy. At the thoracic inlet the thyroid gland appears normal. The skeletal structures do not show any acute changes. IMPRESSION: No evidence of pulmonary embolus, vascular congestion, or aortic dissection. No evidence of pericardial effusion. Minimal dependent bibasilar atelectasis. No infiltrates or effusions. Small hiatal hernia.. This document is electronically signed by Sharron Cervantes MD., June 24 2018 04:13:43 AM ET Transcribed By: RB Dictated By: SHARRON CERVANTES MD Electronically Authenticated By: SHARRON CERVANTES MD Signed Date/Time: 06/24/18 5111 Critical care attestation.: If time is entered above; I have spent that time in minutes in the direct care of this critically ill patient, excluding procedure time. ED Disposition Clinical Impression: Syncope, Hypotension Disposition: [id number] OP ADMIT IP TO THIS HOSP Is pt being admited?: Yes Condition: Fair
--- NOTE | 2018-06-24 01:54 | XRay Report ---
PROCEDURE: XR CHEST 1V AP TECHNIQUE: A portable semiupright view of the chest was obtained. HISTORY: syncope hypotension COMPARISONS: None FINDINGS: The heart size and vascularity appear normal. The lungs are clear. The bones and soft tissues do not show any acute changes. IMPRESSION: No acute cardiopulmonary process.. This document is electronically signed by Elliott Cervantes MD., June 24 2018 01:52:23 AM ET
[2018-06-24 01:57] LABS: Basophils # (Auto) 0.1 K/mm3 (0.0-0.1); Eosinophils # (Auto) 0.1 K/mm3 (0.0-0.4); Eosinophils % (Auto) 0.7 % (0.0-4.3); Hematocrit 39.9 % (35.5-45.6); Hemoglobin 13.7 gm/dl (11.8-15.2); Lymphocytes # (Auto) 2.7 K/mm3 (1.2-5.4); Lymphocytes % (Auto) 27.4 % (13.4-35.0); Mean Corpuscular HGB Conc 34 % (32-34); Mean Corpuscular Volume 84 fl (84-94); Monocytes % (Auto) 9.7 % (0.0-7.3); Platelet Count 226 K/mm3 (140-440); Red Blood Count 4.75 M/mm3 (3.65-5.03)
[2018-06-24] MEDS ORDERED: ROCEPHIN/NS 1 GM/50 ML 1 GM/50 ML BAG IV ONE (02:00)
[2018-06-24 02:48] LABS: Alanine Aminotransferase 138 units/L (7-56); BUN/Creatinine Ratio 13; Blood Urea Nitrogen 21 mg/dL (9-20); Calcium 8.4 mg/dL (8.4-10.2); Hemolysis Index 15
[2018-06-24] MEDS ORDERED: XYLOCAINE 1%/ EPI 1:100,000 INFILTRATI ONE (02:54)
[2018-06-24] MEDS ORDERED: XYLOCAINE 1%/ EPI 1:100,000 INFILTRATI NR (03:00)
[2018-06-24] MEDS ORDERED: LEVOPHED DRIP 4 MG/NS 250 ML 4 MG/250 ML BAG IV SCH (03:00)
[2018-06-24 03:04] LABS: INR 1.08 (0.87-1.13)
--- NOTE | 2018-06-24 04:01 | Cat Scan Report ---
PROCEDURE: CT HEAD/BRAIN WO CON TECHNIQUE: Routine axial imaging was obtained of the brain without IV contrast. HISTORY: syncope ams COMPARISONS: None FINDINGS: The ventricular system is appropriate in size and is symmetric. There is no evidence of acute stroke or hemorrhage. There are benign basal ganglial calcifications. The sinuses are clear. The mastoid air cells are well pneumatized. The calvarium appears intact. IMPRESSION: No acute intracranial process.. This document is electronically signed by Elliott Cervantes MD., June 24 2018 03:58:40 AM ET
--- NOTE | 2018-06-24 04:15 | Cat Scan Report ---
PROCEDURE: CT ANGIO CHEST TECHNIQUE: A CT angiogram was performed following the intravenous injection of iodinated contrast. R otational, sagittal, and coronal MIP reconstructions were reviewed. HISTORY: syncope ? pericardia effusion vs PE COMPARISONS: Chest x-ray 06/24/2018 FINDINGS: The heart size is normal. There is no evidence of pericardial effusion. The thoracic aorta is normal in configuration. There is no evidence of pulmonary embolus or congestion. The lungs reveal minimal d ependent bibasilar atelectasis. There are no infiltrates or effusions. There is a small hiatal hernia . There is no evidence of adenopathy. At the thoracic inlet the thyroid gland appears normal. The ske letal structures do not show any acute changes. IMPRESSION: No evidence of pulmonary embolus, vascular congestion, or aortic dissection. No evidence of pericardial effusion. Minimal dependent bibasilar atelectasis. No infiltrates or effusions. Small hiatal hernia.. This document is electronically signed by Elliott Cervantes MD., June 24 2018 04:13:43 AM ET
--- NOTE | 2018-06-24 04:37 | Cat Scan Report ---
PROCEDURE: CT ABDOMEN PELVIS W CON TECHNIQUE: Computerized axial tomography of the abdomen and pelvis was performed after the IV inject ion of iodinated nonionic contrast. HISTORY: abd pain hypotension COMPARISONS: None . FINDINGS: Visualized lower thorax: No significant abnormality. Liver: Normal size and attenuation. Spleen: Normal size and attenuation. Gallbladder and biliary system: The gallbladder is absent.. Pancreas: Normal. Adrenals: Normal. Kidneys: Both kidneys have a normal size size. There are a few subcentimeter cysts identified in in t he renal cortex bilaterally. No hydronephrosis.. GI tract: The stomach has a normal appearance. There is a moderate-sized hiatal hernia. Small bowel has normal caliber without obstruction. The cecum and appendix are normal. The colon is normal. . Lymph nodes and mesentery: Normal. Vasculature: Normal.. Bladder: There is moderate distention of the urinary bladder. Reproductive organs: Normal. Peritoneum: No free fluid. Musculoskeletal structures: No significant abnormality. Other: None . IMPRESSION: There is no evidence of intestinal or urinary tract obstruction. No ileus or enteritis. The appendix is normal. There is moderate distention of the urinary bladder. Previous cholecystectomy. . This document is electronically signed by Estrella Stern DO., June 24 2018 04:35:26 AM ET
[2018-06-24 05:09] LABS: Bilirubin,Urine NEG (Negative); Blood,Urine NEG (Negative); Color,Urine Straw (Yellow); Hyaline Casts,Urine 1 /LPF; Mucus,Urine FEW /HPF; Protein,Urine <15 mg/dL mg/dL (Negative); RBC,Urine < 1.0 /HPF (0.0-6.0); Urobilinogen,Urine < 2.0 mg/dL (<2.0)
[2018-06-24] MEDS ORDERED: D50W (25GM) Syringe IV PRN (05:39)
[2018-06-24] MEDS: NACL 0.9% 1000 ML 1,000 ML IV SCH ×2 (06:55→17:00)
--- NOTE | 2018-06-24 07:02 | History and Physical Report ---
CHIEF COMPLAINT: Syncopal attack. HISTORY OF PRESENTING ILLNESS: The patient is a 58-year-old male who was noted to have passed out in the house with his head hitting the ground when he fell. The patient said he had feeling of dizziness prior to passing out, but did not remember passing out and denied history of prior chest pain, fever, or shortness of breath. The patient is a poor historian. The patient said that he believes he was throwing up some red stuff and states that his bowel looked like black iodine. PAST MEDICAL HISTORY: Pertinent for diabetes mellitus, gastroesophageal reflux disease, migraine headaches, asthma, hepatitis B and C. PAST SURGICAL HISTORY: Pertinent for cholecystectomy, hernia repair, cyst in the left thigh. FAMILY HISTORY: Noncontributory. SOCIAL HISTORY: The patient smokes cigarette. Does not drink alcohol and does not use illicit drugs. MEDICATIONS: The patient is on albuterol inhaler 1 puff twice daily, carvedilol 3.125 mg by mouth twice daily, diclofenac or Voltaren 75 mg daily, famotidine 40 mg at bedtime, gabapentin 800 mg by mouth twice daily, lansoprazole 15 mg by mouth daily, Claritin or loratadine 10 mg by mouth daily, olmesartan medoxomil 20 mg by mouth daily, tamsulosin or Flomax 0.4 mg by mouth daily, Travatan 0.004% 1 drop to the right eye at night, Zanaflex or tizanidine 4 mg by mouth daily, tramadol 50 mg by mouth twice daily, trazodone 100 mg by mouth at bedtime, insulin Levemir 15 units subcutaneous twice daily, insulin Humulin N 25 units subcutaneous a.c., losartan or Cozaar 50 mg by mouth daily, nicotine or Habitrol 14 mg transdermally nicotine patch daily. ALLERGIES: There are no known drug allergies. REVIEW OF SYSTEMS: CONSTITUTIONAL: There is no fever, no chills, no diaphoresis. HEENT: There is no headache or sore throat. CARDIOVASCULAR SYSTEM: There is no chest pain or orthopnea. RESPIRATORY SYSTEM: There is no shortness of breath or cough. GASTROINTESTINAL SYSTEM: There is nausea and vomiting of suspected red vomiting. No abdominal pain, no diarrhea, no constipation, and the patient has history of melena. NEUROLOGICAL SYSTEM: Dizziness present, syncopal attack present, altered mental status during the period of syncope noted. MUSCULOSKELETAL SYSTEM: There is no joint pain or swelling. DERMATOLOGICAL SYSTEM: There is no skin rash or itching. GENITOURINARY SYSTEM: There is no dysuria, hematuria, or flank pain. Rest of system review is normal. PHYSICAL EXAMINATION: GENERAL: At the time of exam, the patient was found to be alert, oriented x 3, and not in acute distress. VITAL SIGNS: At the initial time of presentation showed temperature of 97.9 degrees Fahrenheit, pulse of 79, respirations 21, initial blood pressure is 60 systolic and no diastolic blood pressure elicited. Repeat blood pressure shows value of 108/60. HEENT: Showed pupils to be equal, round, reactive to light and accommodating. Extraocular muscles were intact. NECK: Supple with no JVD or carotid bruit. CARDIOVASCULAR SYSTEM: Showed normal first and second heart sounds with no gallops or murmur. RESPIRATORY SYSTEM: Showed good air entry on both sides of the lung with no abnormal breath sounds. GASTROINTESTINAL SYSTEM: Showed abdomen to be full, soft, nontender with no organomegaly or rigidity. NEUROLOGICAL: Showed no focal deficit. MUSCULOSKELETAL SYSTEM: Showed no joint swelling or tenderness. DERMATOLOGIC SYSTEM: Showed no skin rash. GENITOURINARY SYSTEM: Showing no costovertebral angle tenderness. PERTINENT LABORATORY AND IMAGING STUDIES: The patient had CT of the head without contrast done that was unremarkable. Also, the patient had CT angiogram of the chest done that shows no pulmonary embolism and no evidence of pericardial effusion. There was finding of mild dependent bibasilar atelectasis with no infiltrate or effusion. There was also finding of small hiatal hernia. The patient had chest x-ray done that was unremarkable. The patient also had CT of the abdomen and pelvis done that showed no evidence of intestinal or urinary tract obstruction. No ileus was found and no enteritis was found. Appendix was normal. There was moderate distension of the urinary bladder and evidence of previous cholecystectomy. Lab results: The patient has CBC done which was unremarkable except for slight increase in monocyte count in the CBC differential. The patient's coagulation studies were unremarkable. Chemistry showed slight decrease in sodium level of 135 with normal potassium and normal chloride. The patient's renal function showed slight increase in creatinine level of 1.6 with slightly decreased estimated GFR of 54. Also, the patient's blood glucose level is high with a value of 242 and rest of chemistry is unremarkable. The patient's urinalysis came back unremarkable. Toxicology showed unremarkable salicylate and acetaminophen level. Plasma alcohol level was also unremarkable. DIAGNOSES: 1. Syncope. 2. Low blood pressures or hypotension. 3. Acute kidney injury. PLAN OF CARE: 1. The patient will be admitted to telemetry. 2. The patient will have cardiac enzymes involving troponin, total CK and CK-MB check q. 6 hours x 2 more levels. 3. The patient will have complete 2D echocardiogram done this morning and will also have bilateral carotid Dopplers done this morning because of syncope. 4. The patient will continue critical care consult with Dr. Odell, requested by the Emergency Room physician and also the patient will have Nephrology consult with Dr. Marquez Ndiaye for acute kidney injury. 5. The patient will have basic metabolic panel done this morning. 6. The patient will be on IV normal saline running at 125 mL an hour. 7. The patient will be on Accu-Chek a.c. and at bedtime followed by low-dose sliding scale using Regular insulin coverage. 8. The patient will be on consistent carbohydrate diet. JOB# [id number] OCN/NTS MTDD
[2018-06-24 07:34] LABS: Creatine Kinase MB 2.4 ng/mL (0.0-4.0)
[2018-06-24 07:35] LABS: BUN/Creatinine Ratio 14; Blood Urea Nitrogen 17 mg/dL (9-20); Hemolysis Index 25
--- NOTE | 2018-06-24 08:27 | Progress Note ---
Assessment and Plan Assessment and plan: Patient is a 58 yo man with a history of IDDM, GERD, Hepatitis B, Hepatitis C and hypertension who presents to [facility] ED with syncopal episode and ARF as cr increased to 1.6 on admission, at discharge on 06/14/18, Creatinine was 1.0; the ED physician saw hypokinectic LV on stat bedside TTE. Patient just discharged on 06/14/18 from here for DKA -Syncope: continue telemetry -Suspected Heart failure: ECHO pending -ARF, vasomotor nephropathy -IDDM: treat with insulin, accuchecks, ssi History Interval history: Patient was seen and examined. Follow-up on current diagnosis of Syncope. Overnight uneventful. Patient denies any chest pain, shortness breath, nausea/vomiting or severe headaches. Imaging, nursing note, chart, labs and old chart reviewed. Discussed with patient. Hospitalist Physical - Physical exam Narrative exam: Gen: WDWN, NAD, Awake, Alert, Orientated HEENT: NCAT, EOMI, PERRL, OP Clear Neck: supple, no adenopathy, no thyromegaly, no JVD CVS/Heart: RRR, normal S1S2, pulses present bilaterally Chest/Lungs: CTA B, Symmetrical chest expansion, good air entry bilaterally GI/Abdomen: soft, NTND, good bowel sounds, no guarding or rebound /Bladder: no suprapubic tenderness, no CVA or paraspinal tenderness Extermity/Skin: no c/c/e, no obvious rash MSK: FROM x 4 Neuro: CN 2-12 grossly intact, no new focal deficits Psych: calm - Constitutional Vitals: Temp Pulse Resp BP Pulse Ox 97.7 F 82 20 122/77 98 06/24/18 08:08 06/24/18 08:08 06/24/18 08:08 06/24/18 08:08 06/24/18 08:08 Results - Labs CBC & Chem 7: 06/24/18 01:45 06/24/18 06:39 Labs: Laboratory Last Values WBC 9.9 K/mm3 (4.5-11.0) 06/24/18 01:45 RBC 4.75 M/mm3 (3.65-5.03) 06/24/18 01:45 Hgb 13.7 gm/dl (11.8-15.2) 06/24/18 01:45 Hct 39.9 % (35.5-45.6) 06/24/18 01:45 MCV 84 fl (84-94) 06/24/18 01:45 MCH 29 pg (28-32) 06/24/18 01:45 MCHC 34 % (32-34) 06/24/18 01:45 RDW 15.0 % (13.2-15.2) 06/24/18 01:45 Plt Count 226 K/mm3 (140-440) 06/24/18 01:45 Lymph % (Auto) 27.4 % (13.4-35.0) 06/24/18 01:45 [place] % (Auto) 9.7 % (0.0-7.3) H 06/24/18 01:45 Eos % (Auto) 0.7 % (0.0-4.3) 06/24/18 01:45 Baso % (Auto) 1.0 % (0.0-1.8) 06/24/18 01:45 Lymph # 2.7 K/mm3 (1.2-5.4) 06/24/18 01:45 [place] # 1.0 K/mm3 (0.0-0.8) H 06/24/18 01:45 Eos # 0.1 K/mm3 (0.0-0.4) 06/24/18 01:45 Baso # 0.1 K/mm3 (0.0-0.1) 06/24/18 01:45 Seg Neutrophils % 61.2 % (40.0-70.0) 06/24/18 01:45 Seg Neutrophils # 6.1 K/mm3 (1.8-7.7) 06/24/18 01:45 PT 14.7 Sec. (12.2-14.9) 06/24/18 02:04 INR 1.08 (0.87-1.13) 06/24/18 02:04 Sodium 139 mmol/L (137-145) 06/24/18 06:39 Potassium 3.9 mmol/L (3.6-5.0) 06/24/18 06:39 Chloride 107.6 mmol/L (98-107) H 06/24/18 06:39 Carbon Dioxide 21 mmol/L (22-30) L 06/24/18 06:39 Anion Gap 14 mmol/L 06/24/18 06:39 BUN 17 mg/dL (9-20) 06/24/18 06:39 Creatinine 1.2 mg/dL (0.8-1.5) 06/24/18 06:39 Estimated GFR > 60 ml/min 06/24/18 06:39 BUN/Creatinine Ratio 14 % 06/24/18 06:39 Glucose 146 mg/dL (75-100) H 06/24/18 06:39 POC Glucose 138 (70-105) H 06/24/18 07:51 Lactic Acid 1.90 mmol/L (0.7-2.0) 06/24/18 03:28 Calcium 7.0 mg/dL (8.4-10.2) L D 06/24/18 06:39 Magnesium 2.40 mg/dL (1.7-2.3) H 06/24/18 02:04 Total Bilirubin 1.20 mg/dL (0.1-1.2) 06/24/18 02:04 AST 104 units/L (5-40) H 06/24/18 02:04 ALT 138 units/L (7-56) H 06/24/18 02:04 Alkaline Phosphatase 75 units/L (35-129) 06/24/18 02:04 Total Creatine Kinase 254 units/L (55-170) H 06/24/18 06:39 CK-MB (CK-2) 2.4 ng/mL (0.0-4.0) 06/24/18 06:39 CK-MB (CK-2) Rel Index 0.9 (0-4) 06/24/18 06:39 Troponin T < 0.010 ng/mL (0.00-0.029) 06/24/18 06:39 Total Protein 6.7 g/dL (6.3-8.2) 06/24/18 02:04 Albumin 4.0 g/dL (3.9-5) 06/24/18 02:04 Albumin/Globulin Ratio 1.5 % 06/24/18 02:04 Urine Color Straw (Yellow) 06/24/18 04:34 Urine Turbidity Clear (Clear) 06/24/18 04:34 Urine pH 6.0 (5.0-7.0) 06/24/18 04:34 Ur Specific [place] 1.005 (1.003-1.030) 06/24/18 04:34 Urine Protein <15 mg/dl mg/dL (Negative) 06/24/18 04:34 Urine Glucose (UA) 150 mg/dL (Negative) 06/24/18 04:34 Urine Ketones Neg mg/dL (Negative) 06/24/18 04:34 Urine Blood Neg (Negative) 06/24/18 04:34 Urine Nitrite Neg (Negative) 06/24/18 04:34 Urine Bilirubin Neg (Negative) 06/24/18 04:34 Urine Urobilinogen < 2.0 mg/dL (<2.0) 06/24/18 04:34 Ur Leukocyte Esterase Neg (Negative) 06/24/18 04:34 Urine WBC (Auto) 1.0 /HPF (0.0-6.0) 06/24/18 04:34 Urine RBC (Auto) < 1.0 /HPF (0.0-6.0) 06/24/18 04:34 U Epithel Cells (Auto) < 1.0 /HPF (0-13.0) 06/24/18 04:34 Hyaline Casts 1 /LPF 06/24/18 04:34 Urine Mucus Few /HPF 06/24/18 04:34 Salicylates < 0.3 mg/dL (2.8-20.0) L 06/24/18 02:04 Acetaminophen < 5.0 ug/mL (10.0-30.0) L 06/24/18 02:04 Plasma/Serum Alcohol < 0.01 % (0-0.07) 06/24/18 02:04 Blood Type AB POSITIVE 06/24/18 06:59 Antibody Screen Negative 06/24/18 06:59 Active Medications - Current Medications Current Medications: Generic Name Dose Route Start Last Admin Trade Name Freq PRN Reason Stop Dose Admin Dextrose 50 ml 06/24/18 05:39 D50w (25gm) Syringe IV PRN PRN Hypoglycemia Sodium Chloride 1,000 mls @ 125 mls/hr 06/24/18 06:00 06/24/18 06:55 Nacl 0.9% 1000 Ml IV 125 mls/hr DIRECT MACIEJ Administration Insulin Human Regular 0 units 06/24/18 07:30 Humulin R SUB-Q AC MACIEJ Protocol Insulin Human Regular 0 units 06/24/18 22:00 Humulin R SUB-Q QHS MACIEJ Protocol Lidocaine/Epinephrine 20 ml 06/24/18 03:00 Xylocaine 1%/ Epi 1:100,000 INFILTRATI 06/24/18 23:59 ONCE NR
[2018-06-24] MEDS: HumuLIN R SUB-Q SCH ×3 (10:16→17:42)
[2018-06-24 13:59] LABS: Creatine Kinase MB 2.9 ng/mL (0.0-4.0)
[2018-06-24] MEDS ORDERED: PROAIR IH PRN (15:11)
[2018-06-24] MEDS ORDERED: PROVENTIL IH PRN (15:35)
[2018-06-24] MEDS: ULTRAM PO SCH ×2 (16:55→21:55)
--- NOTE | 2018-06-24 17:53 | Consultation ---
History of Present Illness - Reason for Consult Consult date: 06/24/18 acute renal failure Requesting physician: VISHAL COBB - History of Present Illness This is a 58 yo M with past medical history of IDDM, GERD, Hepatitis B, Hepatitis C and hypertension, with recent hospitalization for DKA, who now presents to [facility] after pt had an episode of syncope. in ER pt's BP was as low as 80's/50s requiring multiple IV NS boluses. CT head showed no acute finding, CTA w/ PE protocol showed no evidence of PE. Labs showed elevated BUN/Cr at 2.1/1.6mg/dl for which renal consult is requested for management of CURT. Pt is overall poor historian, does not report any previous history of renal disease. upon last discharge Cr was 1.0mg/dl on 06/12/18. Pt denies recent NSAIDs use. Past History Past Medical History: diabetes, hepatitis, hypertension Past Surgical History: cholecystectomy, hernia repair Social history: smoking. denies: alcohol abuse, prescription drug abuse, IV drug use, full code Medications and Allergies Allergies Allergy/AdvReac Type Severity Reaction Status Date / Time No Known Allergies Allergy Verified 06/24/18 02:53 Home Medications Medication Instructions Recorded Confirmed Last Taken Type ALBUTEROL Inhaler (OR & NICU) 1 puff IH BID 06/11/18 06/24/18 Unknown History [ProAir HFA Inhaler] Carvedilol [Coreg] 3.125 mg PO BID 06/11/18 06/24/[address] [Voltaren Dr] 75 mg PO DAILY 06/11/18 06/24/18 Unknown History Famotidine [Pepcid] 40 mg PO QHS 06/11/18 06/24/18 Unknown History Gabapentin [Neurontin] 800 mg PO BID 06/11/18 06/24/18 Unknown History Lansoprazole [Heartburn Treatment 15 mg PO DAILY 06/11/18 06/24/18 Unknown History 24 Hour] Loratadine [Claritin] 10 mg PO DAILY 06/11/18 06/24/18 Unknown History Olmesartan Medoxomil 20 mg PO DAILY 06/11/18 06/24/18 Unknown History Tamsulosin [Flomax] 0.4 mg PO DAILY 06/11/18 06/24/18 Unknown History Travoprost [Travatan Z 0.004%] 1 drop OU QHS 06/11/18 06/24/18 Unknown History tiZANidine [Zanaflex] 4 mg PO DAILY 06/11/18 06/24/18 Unknown History traMADol [Ultram 50 MG tab] 50 mg PO BID 06/11/18 06/24/18 Unknown History traZODone [Desyrel] 100 mg PO QHS 06/11/18 06/24/18 Unknown History Insulin Detemir [Levemir Flextouch] 15 unit SQ BID 06/13/18 06/24/18 Unknown History Insulin NPH Human Isophane 25 unit SQ ACHS 06/13/18 06/24/18 Unknown History [HumuLIN N] Losartan [Cozaar] 50 mg PO QDAY #30 tablet 06/14/18 06/24/18 Unknown Rx Nicotine [Habitrol] 14 mg TD QDAY #30 patch 06/14/18 06/24/18 Unknown Rx Active Meds: Active Medications Albuterol (Proventil) 2.5 mg IH Q4HRT PRN PRN Reason: Shortness Of Breath Carvedilol (Coreg) 3.125 mg PO BID [facility] Dextrose (D50w (25gm) Syringe) 50 ml IV PRN PRN PRN Reason: Hypoglycemia Gabapentin (Neurontin) 800 mg PO BID [facility] Sodium Chloride (Nacl 0.9% 1000 Ml) 1,000 mls @ 125 mls/hr IV DIRECT MACIEJ Last Admin: 06/24/18 17:00 Dose: 125 mls/hr Documented by: Insulin Human Regular (Humulin R) 0 units SUB-Q MACIEJ; Protocol Last Admin: 06/24/18 17:42 Dose: Not Given Documented by: Insulin Human Regular (Humulin R) 0 units SUB-Q QHS MACIEJ; Protocol Latanoprost (Latanoprost 0.005%) 1 drops OU QPM MACIEJ Lidocaine/Epinephrine (Xylocaine 1%/ Epi 1:100,000) 20 ml INFILTRATI ONCE NR Stop: 06/24/18 23:59 Loratadine (Claritin) 10 mg PO DAILY [facility] Losartan Potassium (Cozaar) 50 mg PO QDAY MACIEJ Nicotine (Habitrol) 14 mg TD QDAY [facility] Tamsulosin HCl (Flomax) 0.4 mg PO DAILY [facility] Tramadol HCl (Ultram) 50 mg PO BID MACIEJ Last Admin: 06/24/18 16:55 Dose: 50 mg Documented by: Trazodone HCl (Desyrel) 100 mg PO QHS [facility] Review of Systems All systems: negative Constitutional: fatigue, weakness, other (syncope) Exam - Vital Signs Vital signs: Vital Signs Pulse Ox 96 06/24/18 00:40 - General Appearance General appearance: well-developed, well-nourished, appears stated age EENT: ATNC, PERRL, mucous membranes moist Neck: Present: neck supple Respiratory: Clear to Ascultation Heart: regular, S1S2 Gastrointestinal: Present: normoactive bowel sounds Integumentary: no rash, other (no edema ) Neurologic: no focal deficit, alert and oriented x3, strength 5/5, CN 3-12 intact Psychiatric: mood/affect appropriate, cooperative Results - Lab Results 06/24/18 01:45 06/24/18 06:39 Most recent lab results Calcium 7.0 mg/dL (8.4-10.2) L D 06/24/18 06:39 Magnesium 2.40 mg/dL (1.7-2.3) H 06/24/18 02:04 Laboratory Tests 06/24/18 06/24/18 06/24/18 02:04 02:04 02:04 Magnesium 2.40 H Total Bilirubin 1.20 AST 104 H ALT 138 H Alkaline Phosphatase 75 Total Creatine Kinase 320 H CK-MB (CK-2) CK-MB (CK-2) Rel Index Troponin T Total Protein 6.7 Albumin 4.0 Urine Color Urine Turbidity Urine pH Ur Specific [place] Urine Protein Urine Glucose (UA) Urine Ketones Urine Blood Urine Nitrite Urine Bilirubin Urine Urobilinogen Ur Leukocyte Esterase Urine WBC (Auto) Urine RBC (Auto) U Epithel Cells (Auto) Hyaline Casts Urine Mucus Salicylates < 0.3 L Acetaminophen Plasma/Serum Alcohol 06/24/18 06/24/18 06/24/18 02:04 02:04 04:34 Magnesium Total Bilirubin AST ALT Alkaline Phosphatase Total Creatine Kinase CK-MB (CK-2) CK-MB (CK-2) Rel Index Troponin T Total Protein Albumin Urine Color Straw Urine Turbidity Clear Urine pH 6.0 Ur Specific [place] 1.005 Urine Protein <15 mg/dl Urine Glucose (UA) 150 Urine Ketones Neg Urine Blood Neg Urine Nitrite Neg Urine Bilirubin Neg Urine Urobilinogen < 2.0 Ur Leukocyte Esterase Neg Urine WBC (Auto) 1.0 Urine RBC (Auto) < 1.0 U Epithel Cells (Auto) < 1.0 Hyaline Casts 1 Urine Mucus Few Salicylates Acetaminophen < 5.0 L Plasma/Serum Alcohol < 0.01 06/24/18 06/24/18 06:39 11:51 Magnesium Total Bilirubin AST ALT Alkaline Phosphatase Total Creatine Kinase 254 H 327 H CK-MB (CK-2) 2.9 CK-MB (CK-2) Rel Index 0.8 Troponin T < 0.010 < 0.010 Total Protein Albumin Urine Color Urine Turbidity Urine pH Ur Specific [place] Urine Protein Urine Glucose (UA) Urine Ketones Urine Blood Urine Nitrite Urine Bilirubin Urine Urobilinogen Ur Leukocyte Esterase Urine WBC (Auto) Urine RBC (Auto) U Epithel Cells (Auto) Hyaline Casts Urine Mucus Salicylates Acetaminophen Plasma/Serum Alcohol Assessment and Plan - Patient Problems (1) Acute kidney injury Current Visit: Yes Status: Acute Plan to address problem: CURT secondary to hypotension/syncope. renal function already improving s/p IV NS boluses. avoid nephrotoxins, further IV contrast. UA shows no evidence of significant proteinuria/hematuria to suggest acute glomerular injury. Will check urine protein/cr ratio, urine lytes. Further recommendations depending on pt's clinical course (2) Hypotension Current Visit: Yes Status: Acute Plan to address problem: BP improved after multiple IV NS boluses. cont to hold antihypertensives (3) Diabetes mellitus with hyperglycemia Current Visit: Yes Status: Acute Plan to address problem: glucose control as per primary attending (4) Syncope Current Visit: Yes Status: Acute Plan to address problem: unclear etiology, syncope work up ongoing (5) Hyponatremia Current Visit: No Status: Acute Plan to address problem: likely due to hypovolemia, improved s/p IV NS
[2018-06-24] MEDS ORDERED: LATANOPROST 0.005% OU SCH ×2 (18:00→22:00)
[2018-06-24] MEDS: NEURONTIN PO SCH (21:54)
[2018-06-24] MEDS: FLOMAX PO SCH (21:55)
[2018-06-24] MEDS: COREG PO SCH (21:55)
[2018-06-24] MEDS ORDERED: NON-FORMULARY (Travoprost [Travatan Z 0.004%] 1 DROP) OU SCH (22:00)
[2018-06-24] MEDS ORDERED: NON-FORMULARY (Gabapentin [Neurontin] 800 MG) PO SCH (22:00)
[2018-06-24] MEDS ORDERED: HumuLIN R SUB-Q SCH (22:00)
[2018-06-24] MEDS ORDERED: DESYREL PO SCH (22:00)
[2018-06-25] MEDS ORDERED: VANCOMYCIN PHARMACY TO DOSE IV SCH (01:00)
[2018-06-25] MEDS ORDERED: VANCOMYCIN 1,750 MG in NACL 0.9% 500 ML 500 ML IV ONE (01:00)
--- NOTE | 2018-06-25 04:09 | Vascular Lab Report ---
PROCEDURE: VL CAROTID DUPLEX RT TECHNIQUE: Duplex Doppler ultrasound of the common, internal and external carotid arteries and the v ertebral arteries was performed bilaterally. Reina scale imaging, velocity spectral waveform analysis, and color flow Doppler were employed. HISTORY: SYNCOPE COMPARISONS: None . Note: Measurement of carotid stenosis is based on flow velocity values that correlate with the [place] Symptomatic Carotid Endarterectomy Trial (NASCET) based stenosis criteria using the internal carotid artery diameter as the denominator for stenosis calculation. FINDINGS: RIGHT carotid artery: Velocities: ICA PSV: 58 cm/sec ICA End diastolic: 22 cm/sec CCA PSV: 71 cm/sec IC/CC ratio: 0.81 Plaque/color flow: Mild heterogeneous plaque without significant spectral broadening or abnormal col or flow . RIGHT vertebral artery: Antegrade systolic and diastolic flow LEFT carotid artery: Poor visualization of the arterial structures in the left neck region. Alternative imaging such as CT A may be of benefit. IMPRESSION: 1. RIGHT carotid: No hemodynamically significant (less than 50 percent) internal carotid artery izzy nosis. 2. LEFT carotid: Poor imaging of the left carotid arterial structures. The images are nondiagnostic . Further evaluation with sectional imaging may be appropriate.. 3. Vertebral arteries: Right vertebral artery is normal. Left vertebral artery is not well-visualiz ed.. This document is electronically signed by Estrella Stern DO., June 25 2018 04:08:07 AM ET
[2018-06-25] MEDS ORDERED: COZAAR PO SCH (10:00)
[2018-06-25] MEDS ORDERED: CLARITIN PO SCH (10:00)
[2018-06-25] MEDS ORDERED: HABITROL TD SCH (10:00)
[2018-06-25] MEDS: ULTRAM PO SCH (10:17)
[2018-06-25] MEDS: NEURONTIN PO SCH (10:19)
[2018-06-25] MEDS: HumuLIN R SUB-Q SCH ×2 (10:20→15:03)
[2018-06-25] MEDS: COREG PO SCH (10:20)
[2018-06-25] MEDS: FLOMAX PO SCH (10:20)
--- NOTE | 2018-06-25 11:04 | Progress Note ---
Assessment and Plan - Patient Problems (1) Acute kidney injury Current Visit: Yes Status: Acute Plan to address problem: CURT secondary to hypotension/syncope. renal function improved s/p IV NS boluses. avoid nephrotoxins, further IV contrast. UA shows no evidence of significant proteinuria/hematuria to suggest acute glomerular injury. Will check urine protein/cr ratio, urine lytes. Further recommendations depending on pt's clinical course (2) Hypotension Current Visit: Yes Status: Acute Plan to address problem: BP improved after multiple IV NS boluses. (3) Diabetes mellitus with hyperglycemia Current Visit: Yes Status: Acute Plan to address problem: glucose control as per primary attending (4) Syncope Current Visit: Yes Status: Acute Plan to address problem: unclear etiology, syncope work up ongoing (5) Hyponatremia Current Visit: No Status: Acute Plan to address problem: likely due to hypovolemia, improved s/p IV NS Subjective Date of service: 06/25/18 Principal diagnosis: CURT Interval history: Pt awake, alert, in NAD Objective - Vital Signs Vital signs: Vital Signs - 12hr 06/24/18 06/25/18 23:42 04:15 Temperature 98.1 F 98.3 F Pulse Rate 81 75 Respiratory 12 19 Rate Blood Pressure 141/84 143/83 O2 Sat by Pulse 96 98 Oximetry - General Appearance General appearance: well-developed, well-nourished, appears stated age EENT: ATNC, PERRL, mucous membranes moist Neck: no JVD Respiratory: Present: Clear to Ascultation Cardiology: regular, S1S2 Gastrointestinal: normoactive bowel sounds Integumentary: no rash, other (no edema ) Neurologic: no focal deficit, alert and oriented x3, strength 5/5, CN 3-12 intact Psychiatric: mood/affect appropriate, cooperative - Lab 06/24/18 01:45 06/24/18 06:39 Most recent lab results Calcium 7.0 mg/dL (8.4-10.2) L D 06/24/18 06:39 Magnesium 2.40 mg/dL (1.7-2.3) H 06/24/18 02:04 Medications & Allergies - Medications Allergies/Adverse Reactions: Allergies No Known Allergies Allergy (Verified 06/24/18 02:53) Home Medications: Home Medications Medication Instructions Recorded Confirmed Last Taken Type ALBUTEROL Inhaler (OR & NICU) 1 puff IH BID 06/11/18 06/24/18 Unknown History [ProAir HFA Inhaler] Carvedilol [Coreg] 3.125 mg PO BID 06/11/18 06/24/18 Unknown History Diclofenac [Estela Mahoney] 75 mg PO DAILY 06/11/18 06/24/18 Unknown History Famotidine [Pepcid] 40 mg PO QHS 06/11/18 06/24/18 Unknown History Gabapentin [Neurontin] 800 mg PO BID 06/11/18 06/24/18 Unknown History Lansoprazole [Heartburn Treatment 15 mg PO DAILY 06/11/18 06/24/18 Unknown History 24 Hour] Loratadine [Claritin] 10 mg PO DAILY 06/11/18 06/24/18 Unknown History Olmesartan Medoxomil 20 mg PO DAILY 06/11/18 06/24/18 Unknown History Tamsulosin [Flomax] 0.4 mg PO DAILY 06/11/18 06/24/18 Unknown History Travoprost [Travatan Z 0.004%] 1 drop OU QHS 06/11/18 06/24/18 Unknown History tiZANidine [Zanaflex] 4 mg PO DAILY 06/11/18 06/24/18 Unknown History traMADol [Ultram 50 MG tab] 50 mg PO BID 06/11/18 06/24/18 Unknown History traZODone [Desyrel] 100 mg PO QHS 06/11/18 06/24/18 Unknown History Insulin Detemir [Levemir Flextouch] 15 unit SQ BID 06/13/18 06/24/18 Unknown History Insulin NPH Human Isophane 25 unit SQ ACHS 06/13/18 06/24/18 Unknown History [HumuLIN N] Losartan [Cozaar] 50 mg PO QDAY #30 tablet 06/14/18 06/24/18 Unknown Rx Nicotine [Habitrol] 14 mg TD QDAY #30 patch 06/14/18 06/24/18 Unknown Rx Active Medications: Generic Name Dose Route Start Last Admin Trade Name Freq PRN Reason Stop Dose Admin Albuterol 2.5 mg 06/24/18 15:35 Proventil IH Q4HRT PRN Shortness Of Breath Carvedilol 3.125 mg 06/24/18 22:00 06/25/18 10:20 Coreg PO 3.125 mg BID MACIEJ Administration Dextrose 50 ml 06/24/18 05:39 D50w (25gm) Syringe IV PRN PRN Hypoglycemia Gabapentin 800 mg 06/24/18 22:00 06/25/18 10:19 Neurontin PO 800 mg BID AMCIEJ Administration Sodium Chloride 1,000 mls @ 125 mls/hr 06/24/18 06:00 06/24/18 17:00 Nacl 0.9% 1000 Ml IV 125 mls/hr DIRECT MACIEJ Administration Vancomycin HCl 1,500 mg/ 530 mls @ 333.333 mls/hr 06/25/18 14:00 Sodium Chloride IV Q12H MACIEJ Insulin Human Regular 0 units 06/24/18 07:30 06/25/18 10:20 Humulin R SUB-Q 1 units AC MACIEJ Administration Protocol Insulin Human Regular 0 units 06/24/18 22:00 06/24/18 22:03 Humulin R SUB-Q Not Given QHS MACIEJ Protocol Latanoprost 1 drops 06/24/18 22:00 06/24/18 22:43 Latanoprost 0.005% OU 1 drops 2200 MACIEJ Administration Loratadine 10 mg 06/25/18 10:00 06/25/18 10:20 Claritin PO 10 mg DAILY MACIEJ Administration Losartan Potassium 50 mg 06/25/18 10:00 06/25/18 10:18 Cozaar PO 50 mg QDAY MACIEJ Administration Nicotine 14 mg 06/25/18 10:00 06/25/18 10:20 Habitrol TD 14 mg QDAY MACIEJ Administration Tamsulosin HCl 0.4 mg 06/24/18 22:00 06/25/18 10:20 Flomax PO 0.4 mg DAILY MACIEJ Administration Tramadol HCl 50 mg 06/24/18 16:00 06/25/18 10:17 Ultram PO 50 mg BID MACIEJ Administration Trazodone HCl 100 mg 06/24/18 22:00 06/24/18 21:55 Desyrel PO 100 mg QHS MACIEJ Administration
--- NOTE | 2018-06-25 12:35 | Discharge Summary ---
Providers - Providers Date of Admission: 06/24/18 04:30 Date of discharge: 06/25/18 Attending physician: DORINA ABREU 06/24/18 05:38 Consult to Physician [CONS] Routine Comment: Consulting Provider: OMERO ONEAL Physician Instructions: Reason For Exam: CURT [facility] Condition: Stable Hospital course: Patient is a 58 yo man with a history of IDDM, GERD, Hepatitis B, Hepatitis C and hypertension who presents to [facility] ED with syncopal episode and ARF as cr increased to 1.6 on admission, at discharge on 06/14/18, Creatinine was 1.0; the ED physician saw hypokinectic LV on stat bedside TTE. 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 aware used, but Guerrero Pham is a common name throughout the community health, unable to determine which Guerrero Pham Disposition: [id number] TO HOME OR SELFCARE Time spent for discharge: 36 minutes Core Measure Documentation - Palliative Care Palliative Care/ Comfort Measures: Not Applicable - Core Measures Any of the following diagnoses?: none - VTE Discharge Requirements Deep Vein Thrombosis/Pulmonary Embolism Present on Admission: No Has pt received <5 days of overlap therapy or INR<2.0: No Anticoagulant overlap therapy prescribed at discharge: No Contraindication No Overlap Therapy order at DC: Not Indicated Exam - Physical Exam Narrative exam: Gen: WDWN, NAD, Awake, Alert, Orientated HEENT: NCAT, EOMI, PERRL, OP Clear Neck: supple, no adenopathy, no thyromegaly, no JVD CVS/Heart: RRR, normal S1S2, pulses present bilaterally Chest/Lungs: CTA B, Symmetrical chest expansion, good air entry bilaterally GI/Abdomen: soft, NTND, good bowel sounds, no guarding or rebound /Bladder: no suprapubic tenderness, no CVA or paraspinal tenderness Extermity/Skin: no c/c/e, no obvious rash MSK: FROM x 4 Neuro: CN 2-12 grossly intact, no new focal deficits Psych: calm - Constitutional Vitals: Temp Pulse Resp BP Pulse Ox 98.3 F 75 19 143/83 98 06/25/18 04:15 06/25/18 04:15 06/25/18 04:15 06/25/18 04:15 06/25/18 04:15 Plan Activity: other (no strenous activity until cleared by PCP) Diet: low salt, diabetic Special Instructions: record daily BP diary, record blood sugar diary (3 times a day) Follow up with: JOHN PAUL NEELY MD [Staff Physician] - 3-5 Days OMERO ONEAL MD [Staff Physician] - 7 Days JANICE MONTEIRO MD [Staff Physician] - 7 Days Prescriptions: Insulin Detemir [Levemir Flextouch] 15 unit SQ BID #1 insuln.pen Polyethylene Glycol 3350 [Miralax 3350] 17 gm PO QDAY PRN #30 packet PRN Reason: Constipation Insulin Aspart [NovoLOG Flexpen] 1 dose SQ AC PRN #1 pen PRN Reason: Hyperglycemia Oxycodone HCl/Acetaminophen [Percocet 10/325 mg] 1 each PO Q6HR PRN #20 tablet PRN Reason: Pain , Severe (7-10)
[2018-06-25] MEDS ORDERED: DULCOLAX PR ONE (13:00)
[2018-06-25 13:25] VITALS: BP 131/78
[2018-06-25] MEDS ORDERED: VANCOMYCIN 1,500 MG in NACL 0.9% 500 ML 500 ML IV SCH (14:00)
== END 2018-06-25 14:37 | disposition home health service (06) | DRG 73 ==
LOC: ED 00:33 → 4A 04:30
PROVIDERS: ADMIT Internal Medicine; ATTEND Internal Medicine
DX: G90.8 Other disorders of autonomic nervous system (principal); N17.0 Acute kidney failure with tubular necrosis; B19.10 Unspecified viral hepatitis B without hepatic coma; E87.1 Hypo-osmolality and hyponatremia; I95.9 Hypotension, unspecified; I11.0 Hypertensive heart disease with heart failure; K21.9 Gastro-esophageal reflux disease without esophagitis; G43.909 Migraine, unspecified, not intractable, without status migrainosus; J45.909 Unspecified asthma, uncomplicated; F17.210 Nicotine dependence, cigarettes, uncomplicated; E11.65 Type 2 diabetes mellitus with hyperglycemia; K59.00 Constipation, unspecified; I50.9 Heart failure, unspecified; G89.29 Other chronic pain; Z90.49 Acquired absence of other specified parts of digestive tract; Z79.4 Long term (current) use of insulin
CPT/HCPCS: 36415; 70450; 71045; 71275; 74177; 80048; 80053; 80320; 81001; 82140; 82271; 82550; 82553; 82962; 83735; 84484; 85025; 85610; 86850; 86900; 86901; 87040; 87086; 87116; 93005; 93010; 93306; 96361; 96365; G0378; C9113; G0480; J0696; J3370; J7030; J7040; Q9967

== ENCOUNTER 2018-09-20 15:36 | Inpatient (IN) | payer MEDICARE ==
--- NOTE | 2018-09-20 16:10 | Event Note ---
ED Screening Note ED Screening Note: pt has not been able to urinate since 09/16/18 states he has suprapubic abd pain N/V/D that began 09/16/18 no hematochezia, no hematemesis states has not been able to urinate previously and was admitted to the hospital two months ago pt is not on dialysis, states he sees a kidney doctor also states having chest discomfort PMHx DM, GERD, HEP B and C This initial assessment/diagnostic orders/clinical plan/treatment(s) is/are subject to change based on patients health status, clinical progression and re- assessment by fellow clinical providers in the ED. Further treatment and workup at subsequent clinical providers discretion. Patient/guardian urged not to elope from the ED as their condition may be serious if not clinically assessed and managed. Initial orders include: labs, EKG, CXR
--- NOTE | 2018-09-20 17:12 | XRay Report ---
CHEST 2 VIEWS INDICATION / CLINICAL INFORMATION: CP. COMPARISON: None available. FINDINGS: SUPPORT DEVICES: None. HEART / MEDIASTINUM: Cardiac silhouette is enlarged with normal pulmonary vascularity. LUNGS / PLEURA: No significant pulmonary or pleural abnormality. No pneumothorax. ADDITIONAL FINDINGS: No significant additional findings. IMPRESSION: 1. Cardiomegaly without CHF Signer Name: William Carr MD Signed: 09/20/2018 5:07 PM Workstation Name: [id number]
[2018-09-20 18:05] LABS: Hematocrit 44.9 % (35.5-45.6); Mean Corpuscular HGB Conc 33 % (32-34); Mean Corpuscular Volume 85 fl (84-94); Red Blood Count 5.28 M/mm3 (3.65-5.03)
[2018-09-20 18:07] LABS: Platelet Count 228 K/mm3 (140-440)
[2018-09-20 18:59] LABS: BUN/Creatinine Ratio TNR; Blood Urea Nitrogen TNR mg/dL (9-20)
[2018-09-20 19:00] LABS: Alanine Aminotransferase TNR units/L (7-56); Calcium TNR mg/dL (8.4-10.2)
[2018-09-20 19:01] LABS: Albumin TNR g/dL (3.9-5); Hemolysis Index TNR
[2018-09-20 19:28] LABS: Basophils % (Manual) 0 % (0.0-1.8); Eosinophils % (Manual) 0 % (0.0-4.3); Total Cells Counted 100
[2018-09-20 19:29] LABS: Anisocytosis 1+; Platelet Estimate Consistent w Auto
[2018-09-20] MEDS ORDERED: NACL 0.9% 1000 ML IV ONE (21:39)
[2018-09-20] MEDS ORDERED: MAXIPIME/NS 2 GM/100 ML 2 GM/100 ML BAG IV SCH (22:00)
[2018-09-20 22:03] LABS: Albumin 4.8 g/dL (3.9-5); Calcium 9.4 mg/dL (8.4-10.2)
[2018-09-20] MEDS ORDERED: NACL 0.9% 500 ML IR ONE (22:55)
--- NOTE | 2018-09-20 22:59 | Cat Scan Report ---
CT abdomen pelvis wo con INDICATION: sepsis urinary retention. TECHNIQUE: All CT scans at this location are performed using CT dose reduction for ALARA by means of automated e xposure control. COMPARISON: 06/24/2018 FINDINGS: No acute disease in the lung bases. Cholecystectomy. Liver, spleen, pancreas, kidneys and adrenals ar e negative. Abdominal aorta is normal in size. There are several very small periportal nodes but no s ignificant adenopathy. Pelvis Fonseca catheter is present in the bladder, so the bladder is collapsed. No free fluid or inflammatory change in the pelvis. Normal appendix. No significant bowel abnormalities. No acute skeletal lesions. IMPRESSION: 1. No acute abnormalities. Signer Name: Nickolas Stone MD Signed: 09/20/2018 10:55 PM Workstation Name: [employer]
[2018-09-20 23:46] LABS: Bacteria,Urine 1+ /HPF (Negative); Bilirubin,Urine SM (Negative); Blood,Urine NEG (Negative); Color,Urine Amber (Yellow); Hyaline Casts,Urine 26 /LPF; Mucus,Urine FEW /HPF
[2018-09-21 00:04] LABS: Ictotest,Urine Positive (Negative)
--- NOTE | 2018-09-21 00:55 | Emergency Department Report ---
ED N/V/D HPI - General Chief complaint: Nausea/Vomiting/Diarrhea Stated complaint: FEVER/CHILLS/DEHYDRATED Time Seen by Provider: 09/20/18 16:10 Source: patient Mode of arrival: Ambulatory Limitations: No Limitations - History of Present Illness Initial comments: Mr. Pham is a 58-year-old male with history of diabetes mellitus, GERD, hepatitis B, hepatitis C, hypertension and chronic pain abuse who presents with poor urine output. He also has had a subjective fever with nausea vomiting. Referred by PCP to the ED for IV fluid In June he had 2 admissions to the hospital including evaluation for syncope vasovagal acute kidney injury, hyperglycemia nonketotic state. MD complaint: nausea, vomiting -: Gradual, days(s) (3) Associated Abdominal Pain: No Severity: moderate Quality: cramping Consistency: intermittent Improves with: none Worsens with: none - Related Data Home Medications Medication Instructions Recorded Confirmed Last Taken ALBUTEROL Inhaler (OR & NICU) 1 puff IH BID 06/11/18 06/24/18 Unknown [ProAir HFA Inhaler] Carvedilol [Coreg] 3.125 mg PO BID 06/11/18 06/24/18 Unknown Gabapentin [Neurontin] 800 mg PO BID 06/11/18 06/24/18 Unknown Lansoprazole [Heartburn Treatment 15 mg PO DAILY 06/11/18 06/24/18 Unknown 24 Hour] Loratadine [Claritin] 10 mg PO DAILY 06/11/18 06/24/18 Unknown Tamsulosin [Flomax] 0.4 mg PO DAILY 06/11/18 06/24/18 Unknown Travoprost [Travatan Z 0.004%] 1 drop OU QHS 06/11/18 06/24/18 Unknown tiZANidine [Zanaflex 4mg TAB] 4 mg PO DAILY 06/11/18 06/24/18 Unknown traMADol [Ultram 50 MG tab] 50 mg PO BID 06/11/18 06/24/18 Unknown traZODone [Desyrel] 100 mg PO QHS 06/11/18 06/24/18 Unknown Previous Rx's Medication Instructions Recorded Last Taken Type Losartan [Cozaar] 50 mg PO QDAY #30 tablet 06/14/18 Unknown Rx Nicotine [Habitrol] 14 mg TD QDAY #30 patch 06/14/18 Unknown Rx Insulin Aspart [NovoLOG Flexpen] 1 dose SQ AC PRN #1 pen 06/25/18 Unknown Rx Insulin Detemir [Levemir Flextouch] 15 unit SQ BID #1 insuln.pen 06/25/18 Unknown Rx Oxycodone HCl/Acetaminophen 1 each PO Q6HR PRN #20 tablet 06/25/18 Unknown Rx [Percocet 10/325 mg] Polyethylene Glycol 3350 [Miralax 17 gm PO QDAY PRN #30 packet 06/25/18 Unknown Rx 3350] Allergies Allergy/AdvReac Type Severity Reaction Status Date / Time No Known Allergies Allergy Verified 06/24/18 02:53 ED Review of Systems ROS: Stated complaint: FEVER/CHILLS/DEHYDRATED Other details as noted in HPI Comment: All other systems reviewed and negative Constitutional: malaise. denies: fever Gastrointestinal: abdominal pain, nausea, vomiting, diarrhea ED Past Medical Hx - Past Medical History Previous Medical History?: Yes Hx Hypertension: Yes Hx Congestive Heart Failure: No Hx Diabetes: Yes Hx GERD: Yes Hx Renal Disease: Yes Hx Headaches / Migraines: Yes Hx Seizures: No Hx Asthma: Yes Hx COPD: No Hx Dementia: No Hx HIV: No Additional medical history: Hep B&C. - Surgical History Past Surgical History?: Yes Hx Cholecystectomy: Yes Additional Surgical History: Hernia Repair, Cyst left thigh - Social History Smoking Status: Current Every Day Smoker Substance Use Type: None - Medications Home Medications: Home Medications Medication Instructions Recorded Confirmed Last Taken Type ALBUTEROL Inhaler (OR & NICU) 1 puff IH BID 06/11/18 06/24/18 Unknown History [ProAir HFA Inhaler] Carvedilol [Coreg] 3.125 mg PO BID 06/11/18 06/24/18 Unknown History Gabapentin [Neurontin] 800 mg PO BID 06/11/18 06/24/18 Unknown History Lansoprazole [Heartburn Treatment 15 mg PO DAILY 06/11/18 06/24/18 Unknown History 24 Hour] Loratadine [Claritin] 10 mg PO DAILY 06/11/18 06/24/18 Unknown History Tamsulosin [Flomax] 0.4 mg PO DAILY 06/11/18 06/24/18 Unknown History Travoprost [Travatan Z 0.004%] 1 drop OU QHS 06/11/18 06/24/18 Unknown History tiZANidine [Zanaflex 4mg TAB] 4 mg PO DAILY 06/11/18 06/24/18 Unknown History traMADol [Ultram 50 MG tab] 50 mg PO BID 06/11/18 06/24/18 Unknown History traZODone [Desyrel] 100 mg PO QHS 06/11/18 06/24/18 Unknown History Losartan [Cozaar] 50 mg PO QDAY #30 tablet 06/14/18 06/24/18 Unknown Rx Nicotine [Habitrol] 14 mg TD QDAY #30 patch 06/14/18 06/24/18 Unknown Rx Insulin Aspart [NovoLOG Flexpen] 1 dose SQ AC PRN #1 pen 06/25/18 Unknown Rx Insulin Detemir [Levemir Flextouch] 15 unit SQ BID #1 insuln.pen 06/25/18 Unknown Rx Oxycodone HCl/Acetaminophen 1 each PO Q6HR PRN #20 tablet 06/25/18 Unknown Rx [Percocet 10/325 mg] Polyethylene Glycol 3350 [Miralax 17 gm PO QDAY PRN #30 packet 06/25/18 Unknown Rx 3350] ED Physical Exam - General Limitations: No Limitations General appearance: alert, in no apparent distress - Head Head exam: Present: atraumatic, normocephalic - Eye Eye exam: Present: normal appearance - ENT ENT exam: Present: mucous membranes moist - Neck Neck exam: Present: normal inspection, full ROM - Respiratory Respiratory exam: Present: normal lung sounds bilaterally. Absent: respiratory distress, wheezes, rales, rhonchi - Cardiovascular Cardiovascular Exam: Present: regular rate, normal rhythm, normal heart sounds. Absent: systolic murmur, diastolic murmur, rubs, gallop - GI/Abdominal GI/Abdominal exam: Present: soft, normal bowel sounds. Absent: distended, tenderness, guarding, rebound - Rectal Rectal exam: Present: deferred - Extremities Exam Extremities exam: Present: normal inspection - Back Exam Back exam: Present: normal inspection - Neurological Exam Neurological exam: Present: alert, oriented X3 - Psychiatric Psychiatric exam: Present: normal affect, normal mood - Skin Skin exam: Present: warm, dry, intact, normal color. Absent: rash ED Course Vital Signs 09/20/18 09/20/18 09/20/18 16:05 21:21 21:26 Temperature 98.1 F Pulse Rate 130 H 104 H 112 H Respiratory 20 12 16 Rate Blood Pressure 105/75 100/61 100/61 O2 Sat by Pulse 98 97 Oximetry 09/20/18 09/20/18 09/20/18 21:30 21:36 21:40 Temperature Pulse Rate 105 H 100 H 108 H Respiratory 19 19 30 H Rate Blood Pressure 88/57 88/57 88/57 O2 Sat by Pulse 98 99 97 Oximetry 09/20/18 09/20/18 09/20/18 21:45 21:50 21:56 Temperature Pulse Rate 98 H 98 H 98 H Respiratory 28 H 10 L 23 Rate Blood Pressure 84/46 84/46 84/46 O2 Sat by Pulse 98 99 98 Oximetry 09/20/18 09/20/18 09/20/18 22:00 22:06 22:10 Temperature 98.3 F Pulse Rate 101 H 110 H 103 H Respiratory 20 26 H 24 Rate Blood Pressure 99/66 99/66 99/66 O2 Sat by Pulse 97 98 98 Oximetry 09/20/18 09/20/18 09/20/18 22:16 22:20 22:25 Temperature Pulse Rate 96 H 115 H Respiratory 21 21 Rate Blood Pressure 99/66 119/79 119/79 O2 Sat by Pulse 98 98 99 Oximetry 09/20/18 09/20/18 22:38 22:40 Temperature Pulse Rate 100 H 117 H Respiratory 24 Rate Blood Pressure 119/79 119/79 O2 Sat by Pulse 98 Oximetry ED Medical Decision Making - Lab Data Result diagrams: 09/20/18 17:19 09/20/18 20:08 - Radiology Data Radiology results: report reviewed CT abdomen and pelvis without acute process - Medical Decision Making Mr. Pham presents with recurrent acute kidney injury. History of uncontrolled diabetes with hemoglobin A1c 17 according to previous discharge summary. Suspect nausea vomiting due to uncontrolled diabetes as well as possible gastroparesis. He had only 200 mL of urine output over the course of 5 hours in the emergency department. Fonseca catheter in place in order to rule out urinary retention. I suspect oliguria. No indication of sepsis or infection. I suspect hypovolemia and chronic pain with medication withdrawal as causes of tachycardia. Procedure note: Venous access, under clean conditions I used ultrasound to insert a 20-gauge Angiocath. No complications. Venous return noted. The Angiocath is positional but will flush without infiltration. Critical care attestation.: If time is entered above; I have spent that time in minutes in the direct care of this critically ill patient, excluding procedure time. ED Disposition Clinical Impression: Acute kidney injury, Diabetes mellitus with hyperglycemia, Flank pain, BPH (benign prostatic hyperplasia) Disposition: OP ADMIT IP TO THIS HOSP Is pt being admited?: Yes Does the pt Need Aspirin: No Condition: Stable
[2018-09-21] MEDS ORDERED: ZOFRAN IV ONE (01:29)
[2018-09-21] MEDS ORDERED: NACL 0.9% 1000 ML 1,000 ML IV ONE (01:29)
[2018-09-21] MEDS ORDERED: MORPHINE IV ONE (01:29)
[2018-09-21] MEDS ORDERED: ZOFRAN IV PRN (02:36)
[2018-09-21] MEDS ORDERED: SODIUM CHLORIDE FLUSH SYRINGE 10 ML IV PRN (02:36)
[2018-09-21] MEDS ORDERED: TYLENOL PO PRN (02:36)
[2018-09-21] MEDS ORDERED: MILK OF MAGNESIA PO PRN (02:36)
--- NOTE | 2018-09-21 02:57 | History and Physical Report ---
History of Present Illness Date of examination: 09/21/18 Date of admission: 09/21/2018 Chief complaint: low urine output History of present illness: Pt is a 58-year-old male with PMHx of uncontrolled DM type 1( since early 20s), GERD, hepatitis B, hepatitis C, hypertension and chronic pain, who presents with complaints of diminished urinary output. Patient states that she for the past few days, he noticed that his urine output has been minimal, patient also repo rts fever, nausea and vomiting. Patient admits to noncompliant to his diabetes treatment, his blood sugar in the ER was 215, is to prior history of CKD for which he was admitted in June, he states that this is PCP sent him to the ER for IV fluids. Past History Past Medical History: diabetes, GERD, hypertension, hyperlipidemia, renal failure, other (diabetes neuropathy and retinopathy) Past Surgical History: No surgical history Family history: other (Mother had DM) Medications and Allergies Allergies Allergy/AdvReac Type Severity Reaction Status Date / Time No Known Allergies Allergy Verified 06/24/18 02:53 Home Medications Medication Instructions Recorded Confirmed Last Taken Type ALBUTEROL Inhaler (OR & NICU) 1 puff IH BID 06/11/18 06/24/18 Unknown History [ProAir HFA Inhaler] Carvedilol [Coreg] 3.125 mg PO BID 06/11/18 06/24/18 Unknown History Gabapentin [Neurontin] 800 mg PO BID 06/11/18 06/24/18 Unknown History Lansoprazole [Heartburn Treatment 15 mg PO DAILY 06/11/18 06/24/18 Unknown Hi story 24 Hour] Loratadine [Claritin] 10 mg PO DAILY 06/11/18 06/24/18 Unknown History Tamsulosin [Flomax] 0.4 mg PO DAILY 06/11/18 06/24/18 Unknown History Travoprost [Travatan Z 0.004%] 1 drop OU QHS 06/11/18 06/24/18 Unknown History tiZANidine [Zanaflex 4mg TAB] 4 mg PO DAILY 06/11/18 06/24/18 Unknown History traMADol [Ultram 50 MG tab] 50 mg PO BID 06/11/18 06/24/18 Unknown History traZODone [Desyrel] 100 mg PO QHS 06/11/18 06/24/18 Unknown History Losartan [Cozaar] 50 mg PO QDAY #30 tablet 06/14/18 06/24/18 Unknown Rx Nicotine [Habitrol] 14 mg TD QDAY #30 patch 06/14/18 06/24/18 Unknown Rx Insulin Aspart [NovoLOG Flexpen] 1 dose SQ AC PRN #1 pen 06/25/18 Unknown Rx Insulin Detemir [Levemir Flextouch] 15 unit SQ BID #1 insuln.pen 06/25/18 Unknown Rx Oxycodone HCl/Acetaminophen 1 each PO Q6HR PRN #20 tablet 06/25/18 Unknown Rx [Percocet 10/325 mg] Polyethylene Glycol 3350 [Miralax 17 gm PO QDAY PRN #30 packet 06/25/18 Unknown Rx 3350] Active Meds: Active Medications Acetaminophen (Tylenol) 650 mg PO Q4H PRN PRN Reason: Pain MILD(1-3)/Fever >100.5/JOHNSON Cefepime HCl (Maxipime/Ns 2 Gm/100 Ml) 2 gm in 100 mls @ 200 mls/hr IV Q12HR MACIEJ; Protocol Last Admin: 09/21/18 02:24 Dose: Not Given Documented by: Sodium Chloride (Nacl 0.9% 1000 Ml) 1,000 mls @ 100 mls/hr IV DIRECT MACIEJ Magnesium Hydroxide (Milk Of Magnesia) 30 ml PO Q4H PRN PRN Reason: Constipation Ondansetron HCl (Zofran) 4 mg IV Q8H PRN PRN Reason: Nausea And Vomiting Sodium Chloride (Sodium Chloride Flush Syringe 10 Ml) 10 ml IV BID MACIEJ Sodium Chloride (Sodium Chloride Flush Syringe 10 Ml) 10 ml IV PRN PRN PRN Reason: LINE FLUSH Exam - Constitutional Vitals: Temp Pulse Resp BP Pulse Ox 98.3 F 117 H 24 119/79 98 09/20/18 22:00 09/20/18 22:40 09/20/18 22:40 09/20/18 22:40 09/20/18 22:40 General appearance: Present: no acute distress - EENT Eyes: Present: EOM intact ENT: hearing intact - Neck Neck: Present: normal ROM - Respiratory Respiratory effort: normal Respiratory: bilateral: CTA - Cardiovascular Rhythm: regular - Extremities Extremities: pulses intact, No edema Extremity abnormal: edema Peripheral Pulses: within normal limits - Abdominal General gastrointestinal: Present: non-tender Male genitourinary: Present: deferred - Rectal Rectal Exam: deferred - Integumentary Integumentary: Present: warm, dry - Musculoskeletal Musculoskeletal: strength equal bilaterally - Psychiatric Psychiatric: cooperative - Neurologic Neurologic: moves all extremities Results - Labs CBC & Chem 7: 09/20/18 17:19 09/20/18 20:08 Labs: Laboratory Last Values WBC 15.5 K/mm3 (4.5-11.0) H 09/20/18 17:19 RBC 5.28 M/mm3 (3.65-5.03) H 09/20/18 17:19 Hgb 15.0 gm/dl (11.8-15.2) 09/20/18 17:19 Hct 44.9 % (35.5-45.6) 09/20/18 17:19 MCV 85 fl (84-94) 09/20/18 17:19 MCH 28 pg (28-32) 09/20/18 17:19 MCHC 33 % (32-34) 09/20/18 17:19 RDW 14.0 % (13.2-15.2) 09/20/18 17:19 Plt Count 228 K/mm3 (140-440) 09/20/18 17:19 Lymph # Finisher Polisher 09/20/18 17:19 Add Manual Diff Complete 09/20/18 17:19 Total Counted 100 09/20/18 17:19 Seg Neuts % (Manual) 57.0 % (40.0-70.0) 09/20/18 17:19 0 % 09/20/18 17:19 31.0 % (13.4-35.0) 09/20/18 17:19 Reactive Lymphs % (Man) 0 % 09/20/18 17:19 12.0 % (0.0-7.3) H 09/20/18 17:19 0 % (0.0-4.3) 09/20/18 17:19 0 % (0.0-1.8) 09/20/18 17:19 0 % 09/20/18 17:19 0 % 09/20/18 17:19 0 % 09/20/18 17:19 0 % 09/20/18 17:19 Nucleated RBC % Not Reportable 07/08/19 17:19 Seg Neutrophils # Man 8.8 K/mm3 (1.8-7.7) H 09/20/18 17:19 Band Neutrophils # 0.0 K/mm3 09/20/18 17:19 4.8 K/mm3 (1.2-5.4) 09/20/18 17:19 Abs React Lymphs (Man) 0.0 K/mm3 09/20/18 17:19 1.9 K/mm3 (0.0-0.8) H 09/20/18 17:19 0.0 K/mm3 (0.0-0.4) 09/20/18 17:19 0.0 K/mm3 (0.0-0.1) 09/20/18 17:19 0.0 K/mm3 09/20/18 17:19 0.0 K/mm3 09/20/18 17:19 0.0 K/mm3 09/20/18 17:19 Blast Cells # 0.0 K/mm3 09/20/18 17:19 WBC Morphology Not Reportable 09/20/18 17:19 Hypersegmented Neuts Not Reportable 09/20/18 17:19 Hyposegmented Neuts Not Reportable 09/20/18 17:19 Hypogranular Neuts Not Reportable 09/20/18 17:19 Not Reportable 09/20/18 17:19 Not Reportable 09/20/18 17:19 Not Reportable 09/20/18 17:19 Not Reportable 09/20/18 17:19 Not Reportable 09/20/18 17:19 Not Reportable 09/20/18 17:19 Consistent w auto 09/20/18 17:19 Not Reportable 09/20/18 17:19 Plt Clumps, EDTA Not Reportable 09/20/18 17:19 Not Reportable 09/20/18 17:19 Not Reportable 09/20/18 17:19 Not Reportable 09/20/18 17:19 Plt Morphology Comment Not Reportable 09/20/18 17:19 RBC Morphology Not Reportable 09/20/18 17:19 Dimorphic RBCs Not Reportable 09/20/18 17:19 Not Reportable 09/20/18 17:19 Not Reportable 09/20/18 17:19 Not Reportable 09/20/18 17:19 1+ 09/20/18 17:19 Not Reportable 09/20/18 17:19 Not Reportable 09/20/18 17:19 Not Reportable 09/20/18 17:19 Not Reportable 09/20/18 17:19 Not Reportable 09/20/18 17:19 Not Reportable 09/20/18 17:19 Not Reportable 09/20/18 17:19 Not Reportable 09/20/18 17:19 Not Reportable 09/20/18 17:19 Not Reportable 09/20/18 17:19 Not Reportable 09/20/18 17:19 Not Reportable 09/20/18 17:19 Not Reportable 09/20/18 17:19 Not Reportable 09/20/18 17:19 Not Reportable 09/20/18 17:19 Acanthocytes (Spur) Not Reportable 09/20/18 17:19 Rouleaux Not Reportable 09/20/18 17:19 Not Reportable 09/20/18 17:19 Not Reportable 09/20/18 17:19 Not Reportable 09/20/18 17:19 Not Reportable 09/20/18 17:19 Hem Pathologist Commnt No 09/20/18 17:19 Sodium 137 mmol/L (137-145) 09/20/18 20:08 Potassium 3.8 mmol/L (3.6-5.0) 09/20/18 20:08 Chloride 99.2 mmol/L (98-107) 09/20/18 20:08 Carbon Dioxide 19 mmol/L (22-30) L 09/20/18 20:08 23 mmol/L 09/20/18 20:08 BUN 20 mg/dL (9-20) 09/20/18 20:08 2.7 mg/dL (0.8-1.5) H 09/20/18 20:08 Estimated GFR 30 ml/min 09/20/18 20:08 7 % 09/20/18 20:08 Glucose 215 mg/dL (75-100) H 09/20/18 20:08 Lactic Acid 1.10 mmol/L (0.7-2.0) 09/21/18 00:18 Calcium 9.4 mg/dL (8.4-10.2) 09/20/18 20:08 0.80 mg/dL (0.1-1.2) 09/20/18 20:08 AST 71 units/L (5-40) H 09/20/18 20:08 ALT 110 units/L (7-56) H 09/20/18 20:08 66 units/L (35-129) 09/20/18 20:08 < 0.010 ng/mL (0.00-0.029) 09/20/18 17:19 NT-Pro-B Natriuret Pep 36.12 pg/mL (0-900) 09/20/18 17:19 8.6 g/dL (6.3-8.2) H 09/20/18 20:08 4.8 g/dL (3.9-5) 09/20/18 20:08 1.3 % 09/20/18 20:08 TNR 09/20/18 17:19 Bridget (Yellow) 09/20/18 23:05 Cloudy (Clear) 09/20/18 23:05 5.0 (5.0-7.0) 09/20/18 23:05 Ur Specific [place] 1.025 (1.003-1.030) 09/20/18 23:05 30 mg/dl mg/dL (Negative) 09/20/18 23:05 50 mg/dL (Negative) 09/20/18 23:05 Neg mg/dL (Negative) 09/20/18 23:05 Neg (Negative) 09/20/18 23:05 Neg (Negative) 09/20/18 23:05 Sm (Negative) 09/20/18 23:05 Positive (Negative) 09/20/18 23:05 4.0 mg/dL (<2.0) 09/20/18 23:05 Ur Leukocyte Esterase Neg (Negative) 09/20/18 23:05 6.0 /HPF (0.0-6.0) 09/20/18 23:05 3.0 /HPF (0.0-6.0) 09/20/18 23:05 U Epithel Cells (Auto) 3.0 /HPF (0-13.0) 09/20/18 23:05 1+ /HPF (Negative) 09/20/18 23:05 Hyaline Casts 26 /LPF 09/20/18 23:05 Few /HPF 09/20/18 23:05 Assessment and Plan Assessment and plan: 1. Uncontrolled DM type I 2. CURT/CKD stage 2 to 3 3. Leukicytosis 4. Hypertension 5. Hyperlipidemia 6. Diabetes retinopathy (poor vision) 7. Diabetes neuropathy 8. GERD Plan: Patient is admitted for CURT/CKD IV fluids for renal perfusion Continue antibiotic with Rocephin Fonseca cath for strict I and O Consult nephrology for evaluation Resume home meds Monitor vital signs Glycemic management per protocol Further plan per hospital course Advance Directives: Yes VTE prophylaxis?: Chemical Plan of care discussed with patient/family: Yes
[2018-09-21] MEDS ORDERED: NACL 0.9% 1000 ML 1,000 ML IV SCH (03:00)
[2018-09-21] MEDS ORDERED: MIRALAX 3350 PO PRN (03:30)
[2018-09-21] MEDS ORDERED: INSULIN ASPART SQ PRN (03:30)
[2018-09-21] MEDS ORDERED: NON-FORMULARY (Oxycodone Hcl/Acetaminophen [Percocet 10/325 Mg] 1 EACH) PO PRN (03:30)
[2018-09-21] MEDS ORDERED: NON-FORMULARY (Gabapentin [Neurontin] 800 MG) PO SCH (03:45)
[2018-09-21] MEDS ORDERED: ROXICODONE PO PRN (04:06)
[2018-09-21] MEDS ORDERED: PERCOCET 5/325 PO PRN (04:06)
[2018-09-21] MEDS ORDERED: PROVENTIL IH PRN (04:10)
[2018-09-21] MEDS ORDERED: COZAAR PO SCH (10:00)
[2018-09-21] MEDS ORDERED: PROAIR IH SCH (10:00)
[2018-09-21] MEDS ORDERED: NON-FORMULARY (Lansoprazole [Heartburn Treatment 24 Hour] 15 MG) PO SCH (10:00)
--- NOTE | 2018-09-21 10:16 | Consultation ---
History of Present Illness - Reason for Consult Consult date: 09/21/18 - History of Present Illness the patient with HTN and DM complicated with CKD stage III, was sent to the ED for decreased UOP and worsening Cr, in the ED he was noted to have rising Cr and renal consult was requested. he was suppose to be seen by a kidney Dr as an outpatient but he is not sure of the name. Past History Past Medical History: diabetes, GERD, hypertension, hyperlipidemia, renal failure, other (diabetes neuropathy and retinopathy) Past Surgical History: No surgical history Family history: other (Mother had DM) Medications and Allergies Allergies Allergy/AdvReac Type Severity Reaction Status Date / Time No Known Allergies Allergy Verified 06/24/18 02:53 Home Medications Medication Instructions Recorded Confirmed Last Taken Type ALBUTEROL Inhaler (OR & NICU) 1 puff IH BID 06/11/18 09/21/18 Unknown History [ProAir HFA Inhaler] Carvedilol [Coreg] 3.125 mg PO BID 06/11/18 09/21/18 Unknown History Gabapentin [Neurontin] 800 mg PO BID 06/11/18 09/21/18 Unknown History Lansoprazole [Heartburn Treatment 15 mg PO DAILY 06/11/18 09/21/18 Unknown History 24 Hour] Loratadine [Claritin] 10 mg PO DAILY 06/11/18 09/21/18 Unknown History Tamsulosin [Flomax] 0.4 mg PO DAILY 06/11/18 09/21/18 Unknown History Travoprost [Travatan Z 0.004%] 1 drop OU QHS 06/11/18 09/21/18 Unknown History tiZANidine [Zanaflex 4mg TAB] 4 mg PO DAILY 06/11/18 09/21/18 Unknown History traMADol [Ultram 50 MG tab] 50 mg PO BID 06/11/18 09/21/18 Unknown History traZODone [Desyrel] 100 mg PO QHS 06/11/18 09/21/18 Unknown History Losartan [Cozaar] 50 mg PO QDAY #30 tablet 06/14/18 09/21/18 Unknown Rx Nicotine [Habitrol] 14 mg TD QDAY #30 patch 06/14/18 09/21/18 Unknown Rx Insulin Aspart [NovoLOG Flexpen] 1 dose SQ AC PRN #1 pen 06/25/18 09/21/18 Unknown Rx Insulin Detemir [Levemir Flextouch] 15 unit SQ BID #1 insuln.pen 06/25/18 09/21/18 Unknown Rx Oxycodone HCl/Acetaminophen 1 each PO Q6HR PRN #20 tablet 06/25/18 09/21/18 Unknown Rx [Percocet 10/325 mg] Polyethylene Glycol 3350 [Miralax 17 gm PO QDAY PRN #30 packet 06/25/18 09/21/18 Unknown Rx 3350] Active Meds: Active Medications Acetaminophen (Tylenol) 650 mg PO Q4H PRN PRN Reason: Pain MILD(1-3)/Fever >100.5/JOHNSON Albuterol (Proventil) 2.5 mg IH BIDRT MACIEJ Albuterol (Proventil) 2.5 mg IH Q4HRT PRN PRN Reason: Shortness Of Breath Carvedilol (Coreg) 3.125 mg PO BID MACIEJ Gabapentin (Neurontin) 800 mg PO BID MACIEJ Sodium Chloride (Nacl 0.9% 1000 Ml) 1,000 mls @ 100 mls/hr IV DIRECT MACIEJ Cefepime HCl (Maxipime/Ns 2 Gm/100 Ml) 2 gm in 100 mls @ 200 mls/hr IV Q24HR MACIEJ; Protocol Insulin Human Lispro (Humalog) 0 unit SUB-Q AC MACIEJ Latanoprost (Latanoprost 0.005%) 1 drops OU QHS MACIEJ Loratadine (Claritin) 10 mg PO DAILY MACIEJ Magnesium Hydroxide (Milk Of Magnesia) 30 ml PO Q4H PRN PRN Reason: Constipation Nicotine (Habitrol) 14 mg TD QDAY MACIEJ Ondansetron HCl (Zofran) 4 mg IV Q8H PRN PRN Reason: Nausea And Vomiting Oxycodone HCl (Roxicodone) 5 mg PO Q6H PRN PRN Reason: Pain , Severe (7-10) Oxycodone/Acetaminophen (Percocet 5/325) 1 tab PO Q6H PRN PRN Reason: Pain , Severe (7-10) Pantoprazole Sodium (Protonix) 20 mg PO QDAY MACIEJ Polyethylene Glycol (Miralax 3350) 17 gm PO QDAY PRN PRN Reason: Constipation Sodium Chloride (Sodium Chloride Flush Syringe 10 Ml) 10 ml IV BID MACIEJ Sodium Chloride (Sodium Chloride Flush Syringe 10 Ml) 10 ml IV PRN PRN PRN Reason: LINE FLUSH Tamsulosin HCl (Flomax) 0.4 mg PO DAILY MACIEJ Tizanidine HCl (Zanaflex) 4 mg PO DAILY MACIEJ Tramadol HCl (Ultram) 50 mg PO BID MACIEJ Trazodone HCl (Desyrel) 100 mg PO QHS MACIEJ Review of Systems All systems: negative (dehydration) Exam - Vital Signs Vital signs: Vital Signs Temp Pulse Resp BP Pulse Ox 98.1 F 130 H 20 105/75 98 09/20/18 16:05 09/20/18 16:05 09/20/18 16:05 09/20/18 16:05 09/20/18 16:05 - General Appearance General appearance: well-developed, well-nourished, appears stated age EENT: ATNC, PERRL, mucous membranes moist Neck: Present: neck supple Respiratory: Clear to Ascultation Heart: regular, S1S2 Gastrointestinal: Present: normoactive bowel sounds. Absent: tenderness, distended Integumentary: no rash, warm and dry Neurologic: no focal deficit, no asterixis, alert and oriented x3 Musculoskeletal: Present: other (no edema) Psychiatric: mood/affect appropriate, cooperative Results - Lab Results 09/20/18 17:19 09/20/18 20:08 Most recent lab results Calcium 9.4 mg/dL (8.4-10.2) 09/20/18 20:08 Assessment and Plan acute kidney injury, possible prerenal azotemia, cannot r/o ischemic ATN due to hypotension DM type I HTN - noted to be hypotensive, will d/c losartan - agree with NS 100 cc/h - CT A/P negative for hydronephrosis - will check urine lytes, protein, UA, and urine eos - renally dose meds - strict I&O - daily weight Srikanth Wagner MD [phone]
[2018-09-21] MEDS ORDERED: COREG ONE (10:35)
[2018-09-21] MEDS ORDERED: PROTONIX PO ONE (10:35)
[2018-09-21] MEDS ORDERED: NEURONTIN ONE (10:36)
[2018-09-21] MEDS ORDERED: ZANAFLEX ONE (10:36)
[2018-09-21] MEDS ORDERED: ULTRAM ONE (10:37)
[2018-09-21] MEDS ORDERED: HumaLOG SUB-Q ONE ×2 (10:41→14:09)
[2018-09-21] MEDS: HumaLOG SUB-Q SCH ×3 (10:44→22:51)
[2018-09-21] MEDS: PROTONIX PO SCH (10:45)
[2018-09-21] MEDS: ULTRAM PO SCH ×2 (10:45→22:48)
[2018-09-21] MEDS: COREG PO SCH ×2 (10:45→22:47)
[2018-09-21] MEDS: NEURONTIN PO SCH ×2 (10:45→22:46)
[2018-09-21] MEDS: ZANAFLEX PO SCH (10:46)
[2018-09-21] MEDS ORDERED: MAXIPIME/NS 2 GM/100 ML 2 GM/100 ML BAG IV ONE (11:16)
[2018-09-21] MEDS: MAXIPIME/NS 2 GM/100 ML 2 GM/100 ML BAG IV SCH (11:23)
[2018-09-21] MEDS: HABITROL TD SCH (12:41)
[2018-09-21] MEDS: FLOMAX PO SCH (12:41)
[2018-09-21] MEDS: SODIUM CHLORIDE FLUSH SYRINGE 10 ML IV SCH ×2 (12:41→23:55)
[2018-09-21] MEDS: CLARITIN PO SCH (12:41)
--- NOTE | 2018-09-21 19:02 | Event Note ---
Date: 09/21/18 Patient 58-year-old insulin-dependent diabetes mellitus hepatitis B and C hypertension chronic pain presents would originally arrived this morning thought was decreased urine output. Patient found to have nausea and vomiting was thought to be secondary to uncontrolled diabetes. Patient evaluated now stated he is able to keep food down. No nausea or vomiting. Tolerated breakfast/lunch fairly well. No new concerns at this time. #1 patient has diagnoses of uncontrolled diabetes we need to be more aggressive with glycemic management. We'll add sliding scale and long-acting insulin now. Dewayne to acute on chronic renal failure. Patient creatinine 2.2 BMI 28. Will see how he responds to volume resuscitation. Most likely vasomotor nephropathy. #3 hypertension blood pressure has been on the low side will hold antihypertensive Coreg and initiate IV fluids. Follow-up labs in a.m.
[2018-09-21] MEDS: PROVENTIL IH SCH (19:39)
[2018-09-21] MEDS ORDERED: LATANOPROST 0.005% OU SCH (22:00)
[2018-09-21] MEDS ORDERED: NON-FORMULARY (Travoprost [Travatan Z 0.004%] 1 DROP) OU SCH (22:00)
[2018-09-21] MEDS ORDERED: DESYREL PO SCH (22:00)
[2018-09-21 23:42] LABS: Creatinine,Urine 123.1 mg/dL (0.1-20.0)
[2018-09-21 23:47] LABS: Bilirubin,Urine NEG (Negative); Blood,Urine MOD (Negative); Color,Urine Yellow (Yellow); Mucus,Urine FEW /HPF; Protein,Urine <15 mg/dL mg/dL (Negative)
[2018-09-21 23:55] LABS: Creatinine,Urine 124.5 mg/dL (0.1-20.0); Protein/Creatinine Ratio,Urine 0.12
[2018-09-22 07:49] LABS: Basophils # (Auto) 0.1 K/mm3 (0.0-0.1); Basophils % (Auto) 0.6 % (0.0-1.8); Eosinophils # (Auto) 0.2 K/mm3 (0.0-0.4); Eosinophils % (Auto) 1.9 % (0.0-4.3); Hematocrit 38.9 % (35.5-45.6); Hemoglobin 12.9 gm/dl (11.8-15.2); Lymphocytes # (Auto) 3.7 K/mm3 (1.2-5.4); Mean Corpuscular HGB Conc 33 % (32-34); Mean Corpuscular Volume 86 fl (84-94); Monocytes # (Auto) 0.8 K/mm3 (0.0-0.8); Monocytes % (Auto) 8.4 % (0.0-7.3); Platelet Count 203 K/mm3 (140-440); Red Cell Distribution Width 13.7 % (13.2-15.2)
[2018-09-22 08:18] LABS: BUN/Creatinine Ratio 22; Blood Urea Nitrogen 24 mg/dL (9-20); Hemolysis Index 8
[2018-09-22] MEDS: HumaLOG SUB-Q SCH ×3 (09:05→19:24)
[2018-09-22] MEDS: PROVENTIL IH SCH ×2 (09:07→19:23)
[2018-09-22] MEDS: PROTONIX PO SCH (09:13)
[2018-09-22] MEDS: CLARITIN PO SCH (09:13)
[2018-09-22] MEDS: NEURONTIN PO SCH (09:14)
[2018-09-22] MEDS: FLOMAX PO SCH (09:15)
[2018-09-22] MEDS: COREG PO SCH (09:17)
[2018-09-22] MEDS: ULTRAM PO SCH (09:22)
[2018-09-22] MEDS: HABITROL TD SCH (09:29)
[2018-09-22] MEDS: ZANAFLEX PO SCH (09:29)
[2018-09-22] MEDS: MAXIPIME/NS 2 GM/100 ML 2 GM/100 ML BAG IV SCH (09:31)
[2018-09-22] MEDS: SODIUM CHLORIDE FLUSH SYRINGE 10 ML IV SCH (10:41)
--- NOTE | 2018-09-22 14:06 | Progress Note ---
Assessment and Plan Acute kidney injury, possible prerenal azotemia, cannot r/o ischemic ATN due to hypotension - Renal function reviewed. Serum creatinine decreased to 1.1 today, non-oliguric - BP meds on hold due to Hypotension - On NS@ 100 ml/hr, not running at present - CT A/P negative for hydronephrosis - Urine lytes reviewed. Urine eosinophils- none seen - Renally dose medications - Strict I&O monitoring, will D/C [place] - Obtain daily weights - Can D/C from renal standpoint DM type I -On Insulin as per primary Hypertension -BP meds on hold due to Hypotension, blood pressures are better Subjective Date of service: 09/22/18 Principal diagnosis: ARF Interval history: Patient seen standing in hallway, states he wants to go home. Objective - Vital Signs Vital signs: Vital Signs - 12hr 09/22/18 09/22/18 09/22/18 03:27 09:08 09:11 Temperature 98.3 F Pulse Rate 79 82 Pulse Rate [ 83 Bilateral Throughout] Respiratory 18 Rate Respiratory 20 Rate [Bilateral Throughout] Blood Pressure 89/60 105/63 O2 Sat by Pulse 94 97 Oximetry 09/22/18 09/22/18 09/22/18 09:17 09:23 12:42 Temperature 98.2 F Pulse Rate 83 Pulse Rate [ 80 Bilateral Throughout] Respiratory 18 Rate Respiratory 18 Rate [Bilateral Throughout] Blood Pressure 105/63 101/58 O2 Sat by Pulse 96 Oximetry - General Appearance General appearance: well-developed, appears stated age EENT: ATNC, PERRL, hearing intact, vision intact Neck: no JVD, supple Respiratory: Present: Clear to Ascultation Cardiology: regular, S1S2 Gastrointestinal: normoactive bowel sounds Integumentary: warm and dry Neurologic: alert and oriented x3 Musculoskeletal: other (No edema) Psychiatric: mood/affect appropriate - Lab 09/22/18 06:35 09/22/18 06:35 Most recent lab results Calcium 8.0 mg/dL (8.4-10.2) L 09/22/18 06:35 Phosphorus 2.80 mg/dL (2.5-4.5) 09/22/18 06:35 123.1 mg/dL (0.1-20.0) H 09/21/18 Unknown 124.5 mg/dL (0.1-20.0) H 09/21/18 Unknown 32 mmol/L 09/21/18 Unknown 15 mg/dL (5-11.8) H 09/21/18 Unknown Medications & Allergies - Medications Allergies/Adverse Reactions: Allergies No Known Allergies Allergy (Verified 06/24/18 02:53) Home Medications: Home Medications Medication Instructions Recorded Confirmed Last Taken Type ALBUTEROL Inhaler (OR & NICU) 1 puff IH BID 06/11/18 09/21/18 Unknown History [ProAir HFA Inhaler] Carvedilol [Coreg] 3.125 mg PO BID 06/11/18 09/21/18 Unknown History Gabapentin [Neurontin] 800 mg PO BID 06/11/18 09/21/18 Unknown History Lansoprazole [Heartburn Treatment 15 mg PO DAILY 06/11/18 09/21/18 Unknown History 24 Hour] Loratadine [Claritin] 10 mg PO DAILY 06/11/18 09/21/18 Unknown History Tamsulosin [Flomax] 0.4 mg PO DAILY 06/11/18 09/21/18 Unknown History Travoprost [Travatan Z 0.004%] 1 drop OU QHS 06/11/18 09/21/18 Unknown History tiZANidine [Zanaflex 4mg TAB] 4 mg PO DAILY 06/11/18 09/21/18 Unknown History traMADol [Ultram 50 MG tab] 50 mg PO BID 06/11/18 09/21/18 Unknown History traZODone [Desyrel] 100 mg PO QHS 06/11/18 09/21/18 Unknown History Losartan [Cozaar] 50 mg PO QDAY #30 tablet 06/14/18 09/21/18 Unknown Rx Nicotine [Habitrol] 14 mg TD QDAY #30 patch 06/14/18 09/21/18 Unknown Rx Insulin Aspart [NovoLOG Flexpen] 1 dose SQ AC PRN #1 pen 06/25/18 09/21/18 Unknown Rx Insulin Detemir [Levemir Flextouch] 15 unit SQ BID #1 insuln.pen 06/25/18 09/21/18 Unknown Rx Oxycodone HCl/Acetaminophen 1 each PO Q6HR PRN #20 tablet 06/25/18 09/21/18 Unknown Rx [Percocet 10/325 mg] Polyethylene Glycol 3350 [Miralax 17 gm PO QDAY PRN #30 packet 06/25/18 09/21/18 Unknown Rx 3350] Hydroxyzine HCl [hydrOXYzine] 50 mg PO PRN 09/22/18 09/22/18 Unknown History Active Medications: Generic Name Dose Route Start Last Admin Trade Name Freq PRN Reason Stop Dose Admin Acetaminophen 650 mg 09/21/18 02:36 Tylenol PO Q4H PRN Pain MILD(1-3)/Fever >100.5/JOHNSON Albuterol 2.5 mg 09/21/18 08:00 09/22/18 09:07 Proventil IH 2.5 mg BIDRT MACIEJ Administration Albuterol 2.5 mg 09/21/18 04:10 Proventil IH Q4HRT PRN Shortness Of Breath Carvedilol 3.125 mg 09/21/18 10:00 09/22/18 09:17 Coreg PO Not Given BID MACIEJ Gabapentin 800 mg 09/21/18 10:00 09/22/18 09:14 Neurontin PO 800 mg BID MACIEJ Administration Sodium Chloride 1,000 mls @ 100 mls/hr 09/21/18 03:00 09/21/18 22:49 Nacl 0.9% 1000 Ml IV 100 mls/hr DIRECT MACIEJ Administration Cefepime HCl 2 gm in 100 mls @ 200 mls/hr 09/21/18 10:00 09/22/18 09:31 Maxipime/Ns 2 Gm/100 Ml IV 09/24/18 09:59 200 mls/hr Q24HR MACIEJ Administration Protocol Insulin Glargine 20 units 09/22/18 22:00 Lantus SUB-Q QHS MACIEJ Insulin Human Lispro 0 unit 09/21/18 07:30 09/22/18 13:30 Humalog SUB-Q 1 unit AC MACIEJ Administration Latanoprost 1 drops 09/21/18 22:00 09/21/18 23:52 Latanoprost 0.005% OU 1 drops QHS MACIEJ Administration Loratadine 10 mg 09/21/18 10:00 09/22/18 09:13 Claritin PO 10 mg DAILY MACIEJ Administration Magnesium Hydroxide 30 ml 09/21/18 02:36 Milk Of Magnesia PO Q4H PRN Constipation Nicotine 14 mg 09/21/18 10:00 09/22/18 09:29 Habitrol TD 14 mg QDAY MACIEJ Administration Ondansetron HCl 4 mg 09/21/18 02:36 Zofran IV Q8H PRN Nausea And Vomiting Oxycodone HCl 5 mg 09/21/18 04:06 Roxicodone PO Q6H PRN Pain , Severe (7-10) Oxycodone/Acetaminophen 1 tab 09/21/18 04:06 09/22/18 09:29 Percocet 5/325 PO 1 tab Q6H PRN Administration Pain , Severe (7-10) Pantoprazole Sodium 20 mg 09/21/18 10:00 09/22/18 09:13 Protonix PO 20 mg QDAY MACIEJ Administration Polyethylene Glycol 17 gm 09/21/18 03:30 09/22/18 13:33 Miralax 3350 PO 17 gm QDAY PRN Administration Constipation Sodium Chloride 10 ml 09/21/18 10:00 09/22/18 10:41 Sodium Chloride Flush Syringe 10 Ml IV Not Given BID MACIEJ Sodium Chloride 10 ml 09/21/18 02:36 Sodium Chloride Flush Syringe 10 Ml IV PRN PRN LINE FLUSH Tamsulosin HCl 0.4 mg 09/21/18 10:00 09/22/18 09:15 Flomax PO 0.4 mg DAILY MACIEJ Administration Tizanidine HCl 4 mg 09/21/18 10:00 09/22/18 09:29 Zanaflex PO 4 mg DAILY MACIEJ Administration Tramadol HCl 50 mg 09/21/18 10:00 09/22/18 09:22 Ultram PO Not Given BID MACIEJ Trazodone HCl 100 mg 09/21/18 22:00 09/21/18 22:47 Desyrel PO 100 mg QHS MACIEJ Administration
--- NOTE | 2018-09-22 17:59 | Discharge Summary ---
Providers - Providers Date of Admission: 09/21/18 02:36 Date of discharge: 09/22/18 Attending physician: FERNANDA MCNEAL 09/21/18 07:04 Consult to Physician [CONS] Routine Comment: Consulting Provider: RUCHI PRITCHETT Physician Instructions: Reason For Exam: CURT/CKD Primary care physician: JOHN PAUL NEELY Hospitalization Condition: Good Hospital course: Patient 58-year-old male with a history of insulin-dependent diabetes mellitus hepatitis B C hypertension and chronic pain presented with nausea vomiting decreased urine output. Patient has been noncompliant with insulin. Presented uncontrolled diabetes. Patient was treated with insulin nausea and vomiting resolved. Patient's abdominal pain resolved was able to keep all. Now without any abdominal pain. Patient stable ready to go home. We encouraged aggressive hyperglycemic management. Patient understands. #3 patient had a creatinine of 2.3 upon admission but was secondary to vasomotor nephropathy. Creatinine came down to 1.1 with IV volume replacement. Disposition: - TO HOME OR SELFCARE Core Measure Documentation - Palliative Care Palliative Care/ Comfort Measures: Not Applicable - Core Measures Any of the following diagnoses?: none Exam - Constitutional Vitals: Temp Pulse Resp BP Pulse Ox 98.2 F 83 18 101/58 96 09/22/18 12:42 09/22/18 12:42 09/22/18 12:42 09/22/18 12:42 09/22/18 12:42 General appearance: Present: no acute distress, well-nourished - EENT Eyes: Present: PERRL ENT: hearing intact, clear oral mucosa - Neck Neck: Present: supple, normal ROM - Respiratory Respiratory effort: normal Respiratory: bilateral: CTA - Cardiovascular Heart Sounds: Present: S1 & S2. Absent: rub, click - Extremities Extremities: pulses symmetrical, No edema Peripheral Pulses: within normal limits - Abdominal General gastrointestinal: Present: soft, non-tender, non-distended, normal bowel sounds Male genitourinary: Present: normal - Integumentary Integumentary: Present: clear, warm, dry - Musculoskeletal Musculoskeletal: gait normal, strength equal bilaterally - Psychiatric Psychiatric: appropriate mood/affect, intact judgment & insight - Neurologic Neurologic: CNII-XII intact, moves all extremities Plan Activity: no restrictions Diet: low cholesterol, diabetic Special Instructions: record blood sugar diary Follow up with: JOHN PAUL NEELY MD [Primary Care Provider] - 7 Days Prescriptions: Hydroxyzine HCl [hydrOXYzine] 50 mg PO PRN #30 tablet Insulin Detemir [Levemir Flextouch] 15 unit SQ BID #1 insuln.pen Polyethylene Glycol 3350 [Miralax 3350] 17 gm PO QDAY PRN #7 powd.pack PRN Reason: Constipation oxyCODONE /ACETAMINOPHEN [Percocet 5/325 mg] 1 tab PO Q6H PRN #14 tablet PRN Reason: Pain , Severe (7-10) ALBUTEROL Inhaler (OR & NICU) [ProAir HFA Inhaler] 1 puff IH BID #60 inha
[2018-09-22 20:00] VITALS: BP 102/63
[2018-09-22] MEDS ORDERED: LANTUS SUB-Q SCH (22:00)
== END 2018-09-22 20:08 | disposition home health service (06) | DRG 637 ==
LOC: ED 15:36 → 4A 09-21 02:36
PROVIDERS: ADMIT Internal Medicine; ATTEND Internal Medicine
DX: E10.65 Type 1 diabetes mellitus with hyperglycemia (principal); N17.0 Acute kidney failure with tubular necrosis; K21.9 Gastro-esophageal reflux disease without esophagitis; E10.22 Type 1 diabetes mellitus with diabetic chronic kidney disease; F17.200 Nicotine dependence, unspecified, uncomplicated; G89.29 Other chronic pain; F17.210 Nicotine dependence, cigarettes, uncomplicated; N40.0 Benign prostatic hyperplasia without lower urinary tract symptoms; E10.40 Type 1 diabetes mellitus with diabetic neuropathy, unspecified; E10.319 Type 1 diabetes mellitus with unspecified diabetic retinopathy without macular edema; I12.9 Hypertensive chronic kidney disease with stage 1 through stage 4 chronic kidney disease, or unspecified chronic kidney disease; G43.909 Migraine, unspecified, not intractable, without status migrainosus; E78.5 Hyperlipidemia, unspecified; N18.3 Chronic kidney disease, stage 3 (moderate); Z83.3 Family history of diabetes mellitus; Z79.51 Long term (current) use of inhaled steroids; Z79.4 Long term (current) use of insulin; Z90.49 Acquired absence of other specified parts of digestive tract; Z71.6 Tobacco abuse counseling
CPT/HCPCS: 36415; 71046; 74176; 80048; 80053; 81001; 82140; 82570; 82962; 83880; 84100; 84156; 84300; 84484; 85007; 85025; 87040; 87086; 89050; 93005; 93010; 94640; 99406; G0378; J0692; J1815; J2270; J2405; J7030; Q9967